=== PATIENT | female | born 1965 | race Caucasian/White ===

== ENCOUNTER 2016-07-07 11:35 | Emergency (ER) | payer BC ==
[2016-07-07 12:06] VITALS: BP 112/81
--- NOTE | 2016-07-07 13:34 | RAD ---
HISTORY: Pain and edema COMPARISONS: None VIEWS: 4, Frontal, lateral, axial, and oblique views of the right knee FINDINGS: BONE DENSITY: Normal. BONES: There is no displaced fracture. JOINTS: There is mild tricompartment osteoarthritis. There is a large suprapatellar joint effusion. ALIGNMENT: There is no dislocation. SOFT TISSUES: Unremarkable. OTHER FINDINGS: None. IMPRESSION: JOINT EFFUSION. NO ACUTE OSSEOUS INJURY. IF SYMPTOMS PERSIST, RECOMMEND REPEAT IMAGING.
--- NOTE | 2016-07-07 14:02 | UC ---
Knee Pain HPI - HPI Summary HPI Summary: WENT TO [facility] HAD HIP JOINT WORKED ON ON THURSDAY. SINCE THURSDAY EVENING HAD PAIN AND SWELLING AROUND KNEE CAP. NO KNOWN DIRECT TRAUMA. PAIN WITH MOVING KNEE CAP AND WITH BENDING KNEE. CURRENTLY ON BLOOD THINNERS FOR HISTORY OF FACTOR 5 LEIDEN. NO CALF PAIN. NO HIP PAIN. NO SHORTNESS OF BREATH OR CHEST PAIN. RIGHT KNEE DISLOCATION HISTORY IN ADOLESCENCE. - History of Current Complaint Chief Complaint: UCLowerExtremity Stated Complaint: KNEE PAIN Time Seen by Provider: 07/07/16 12:42 Hx Obtained From: Patient, Family/Cell Preparer Hx Last Menstrual Period: POST MENOPAUSAL Onset/Duration: Gradual Onset, Lasting Days, Still Present Severity Initially: Severe Severity Currently: Mild Character: Dull, Aching Aggravating Factor(s): Movement, Weight Bearing Alleviating Factor(s): Rest, Position Associated Signs And Symptoms: Positive: Swelling. Negative: Redness, Bruising , Fever, Weakness, Numbness, Tingling - Risk Factors Septic Arthritis Risk Factor: Negative Gout Risk Factor: Negative - Allergies/Home Medications Allergies/Adverse Reactions: Allergies Allergy/AdvReac Type Severity Reaction Status Date / Time No Known Allergies Allergy Verified 05/23/15 10:30 Home Medications: Home Medications Warfarin TAB(*) [Coumadin TAB(*)] 11 mg PO DAILY 07/07/16 [History Confirmed ] PMH/Surg Hx/FS Hx/Imm Hx Previously Healthy: Yes Endocrine History Of: Denies: Diabetes, Thyroid Disease, Hyperthyroidism, Hypothyroidism, Dyslipidemia Cardiovascular History Of: Denies: Cardiac Disorders, Hypertension, Pacemaker/ICD, Myocardial Infarction , Congestive Heart Failure, Atrial Fibrillation, Deep Vein Thrombosis, Bleeding Disorders Respiratory History Of: Denies: COPD, Asthma, Bronchitis, Pneumonia, Pulmonary Embolism GI/ History Of: Reports: Gastroesophageal Reflux Denies: Ulcer, Gastrointestinal Bleed, Gall Bladder Disease, Kidney Stones, Diverticulitis, Renal Disease, Urosepsis Neurological History Of: Reports: Migraine Denies: TIA, CVA, Dementia, Seizures Psychological History Of: Denies: Anxiety, Depression, Bipolar Disorder, Schizophrenia, Post Traumatic Stress Disorder Cancer History Of: Denies: Breast Cancer - Surgical History Surgical History: Yes Surgery Procedure, Year, and Place: tubal ligation. UMBILICAL HERNIA REPAIR - Family History Known Family History: Positive: None, Blood Disorder - FACTOR 5 LEIDEN - Social History Occupation: Employed Full-time Lives: With Family Alcohol Use: Occasionally Substance Use Type: None Smoking Status (MU): Never Smoked Tobacco Review of Systems Constitutional: Negative Skin: Negative Eyes: Negative ENT: Negative Respiratory: Negative Cardiovascular: Negative Gastrointestinal: Negative Genitourinary: Negative Motor: Negative Neurovascular: Negative Musculoskeletal: Arthralgia, Edema - ANTERIOR RIGHT KNEE, Other: - NEGATIVE HOMANS; NO POPLITEAL FOSSA TENDERNESS Neurological: Negative Psychological: Negative All Other Systems Reviewed And Are Negative: Yes Physical Exam Triage Information Reviewed: Yes Appearance: Well-Appearing, Well-Nourished, Pain Distress - MILD Vital Signs: Initial Vital Signs Temp 98.5 F 07/07/16 12:01 Pulse 80 07/07/16 12:01 Resp 16 07/07/16 12:01 BP 112/81 07/07/16 12:01 Pulse Ox 99 07/07/16 12:01 Vital Signs Reviewed: Yes Eye Exam: Normal ENT Exam: Normal ENT: Positive: Normal ENT inspection, Hearing grossly normal, Pharynx normal, TMs normal Dental Exam: Normal Neck exam: Normal Neck: Positive: Supple, Nontender, No Lymphadenopathy Respiratory Exam: Normal Respiratory: Positive: Chest non-tender, Lungs clear, Normal breath sounds, No respiratory distress, No accessory muscle use Cardiovascular Exam: Normal Cardiovascular: Positive: RRR, No Murmur, Pulses Normal, Brisk Capillary Refill Abdominal Exam: Normal Musculoskeletal: Positive: Strength Intact, ROM Limited @ - TENDERNESS WITH FLEXION OF RIGHT KNEE, Edema @ - ANTERIOR PATELLA, Other: - NEGATIVE HOMANS; NO POPLITEAL FOSSA TENDERNESS Neurological Exam: Normal Psychological Exam: Normal Psychological: Positive: Normal Response To Family Skin Exam: Normal Knee Pain Course/Dx - Course Course Of Treatment: PATIENT HAS ORTHOPEDICS APPOINTMENT TOMORROW. ON BLOOD THINNERS AND DECLINED IMMEDIATE EVALUATION AT EMERGENCY DEPARTMENT FOR POTENTIAL CLOTTING CONCERNS, AGREED TO SEEK IMMEDIATE EMERGENCY CARE IF CALF PAIN, POSTERIOR KNEE PAIN, IF SWELLING CONTINUES, IF SHORTNESS OF BREATH, CHEST DISCOMFORT OR ANY NEW SYMPTOMS DEVELOP OR IF CURRENT SYMPTOMS WORSEN. - Differential Dx/Diagnosis Differential Diagnosis/HQI/PQRI: Bursitis, DVT, Fracture (Closed), Internal Derangement Of Knee, Patellofemoral Syndrome, Sprain, Strain, Other - PAGE CYST Provider Diagnoses: RIGHT KNEE JOINT EFFUSION. RIGHT KNEE PAIN Discharge - Discharge Plan Condition: Stable Disposition: HOME Patient Education Materials: Swollen Knee Joint (ED), Knee Pain (ED) Referrals: Elisha Houston MD [Primary Care Provider] - Tye Warren MD [Medical Doctor] -
== END 2016-07-07 14:04 | disposition home or self-care (01) ==
LOC: UCEAST 11:35
DX: M25.461 Effusion, right knee (principal); M25.561 Pain in right knee; Z79.01 Long term (current) use of anticoagulants
CPT/HCPCS: 99212; G0463

== ENCOUNTER 2016-11-29 08:55 | Emergency (ER) | payer BC ==
--- NOTE | 2016-11-29 09:40 | UC ---
Cardiac HPI - HPI Summary HPI Summary: c/o rt sided sudden onset of rt sided chest pain that awoke her from sleep at 4AM. pain also in b/w her shoulder blades like someone is stabbing her with a knife". pain has been constant and escalating since then. now at 7/10. took a prevacid initially thinking it was gerd without relief. + h/o DVT in 190s with + factor V Leiden. She has been on warfarin for 1 yr She has been on lovenox since vascular surgery Rt LE in 11/08. she had vascular LE outpt procedure 11/24. She is very consistent with lovenox dosing (except last night's dose was 40mins late). INR yesterday was reportedly sub-theraputic at 1.0 with goal of 2.5. Took 9 mgs warfarin last PM. No leg swelling. pain 12/01. Of note, Dad had aneurysm but did not from this. Here with her S.O Max. - History of Current Complaint Chief Complaint: UCChestPain Stated Complaint: CHEST PAIN Time Seen by Provider: 11/29/16 09:05 - Allergy/Home Medications Allergies/Adverse Reactions: Allergies Allergy/AdvReac Type Severity Reaction Status Date / Time No Known Allergies Allergy Verified 11/29/16 09:09 Home Medications: Home Medications Enoxaparin(*) [Lovenox(*)] 60 mg BID 11/29/16 [History Confirmed 11/29/16] Folic Acid-Vitamin B6-Vitamin [Folbee 2.5-25-1 mg] 1 tab DAILY 11/29/16 [ History Confirmed 11/29/16] Warfarin TAB(*) [Coumadin TAB(*)] 10 mg PO DAILY 11/29/16 [History Confirmed 01/08] PMH/Surg Hx/FS Hx/Imm Hx Previously Healthy: Yes Cardiovascular History: Deep Vein Thrombosis - + Factor V Leiden def, Other - PVD Other Cardiovascular History: PVD GI/ History: Gastroesophageal Reflux Neurological History: Migraine - Surgical History Surgical History: Yes - PVD B/L LE Surgery Procedure, Year, and Place: tubal ligation. UMBILICAL HERNIA REPAIR - Family History Known Family History: Positive: Blood Disorder - FACTOR 5 LEIDEN, Other - aneursym - Social History Alcohol Use: Occasionally Substance Use Type: None Smoking Status (MU): Never Smoked Tobacco Review of Systems Constitutional: Negative Skin: Negative Eyes: Negative ENT: Negative Respiratory: Negative Cardiovascular: Chest Pain Gastrointestinal: Nausea Genitourinary: Negative Motor: Negative Neurovascular: Negative Musculoskeletal: Negative Neurological: Negative Psychological: Negative All Other Systems Reviewed And Are Negative: Yes Physical Exam Triage Information Reviewed: Yes Appearance: Well-Nourished, Ill-Appearing, Pain Distress, Other: - She is flexed forward on stretcher rocking holding a pillow up to her right chest. appears to be in mod-severe pain. Vital Signs Reviewed: Yes Eye Exam: Normal ENT Exam: Normal ENT: Positive: Pharynx normal Neck exam: Normal Neck: Positive: Supple, Nontender, No Lymphadenopathy Respiratory: Positive: Chest non-tender, Lungs clear, Normal breath sounds, No respiratory distress, No accessory muscle use. Negative: Crackles, Rhonchi, Stridor, Wheezing Cardiovascular Exam: Normal Cardiovascular: Positive: RRR, No Murmur, Pulses Normal, Brisk Capillary Refill Abdomen Description: Positive: Nontender, Soft Musculoskeletal Exam: Normal Neurological Exam: Normal Psychological Exam: Normal Skin Exam: Normal - Assessment/Plan Course Of Treatment: EKG - sinus julio, nml axis, no AV/IV changes or ST/T changes. IV HL paced. 911 ALS. they are agreeable to go to [facility] ER, Eugenio d/t urgency of possible aortic disection, PE. They are agreeable with this. - Differential Diagnoses - Chest Pain Differential Diagnosis/HQI/PQRI: Acute CT, ACS, Aortic Aneurysm, Pulmonary Embolism - Clinical Impression Provider Diagnoses: Right chest pain, thoracic back pain, factor V Leiden deficiency - Physician Notifications Discussed Patient Care With: RADHA Garnica ER Time Discussed With Above Provider: 09:30 Discharge - Discharge Plan Condition: Guarded Disposition: TRANS HIGHER LVL OF CARE FAC
[2016-11-29 09:59] VITALS: BP 125/73
== END 2016-11-29 09:40 | disposition short-term general hospital (02) ==
LOC: UCCORT 08:55
DX: R07.9 Chest pain, unspecified (principal); M54.6 Pain in thoracic spine; D68.51 Activated protein C resistance; Z79.01 Long term (current) use of anticoagulants
CPT/HCPCS: 93005; 99213; G0463

== ENCOUNTER 2019-09-06 13:09 | Emergency (ER) | payer BC ==
--- NOTE | 2019-09-06 13:14 | UC ---
Skin Complaint HPI - HPI Summary HPI Summary: 54-year-old female who presents with an itchy rash on her arms, abdomen and back. She stated she was outdoors on Thursday, 2 days ago for an Easter egg boudreaux and that evening she started having a red rash on her elbows which was fairly itchy. Since then it has continued to spread. She had a similar episode a few years ago where she was working with mulch in the yard. She denies any difficulty breathing, no wheezing. No other change of laundry detergent or cosmetics. - History of Current Complaint Time Seen by Provider: 09/06/19 13:13 Stated Complaint: rash Hx Obtained From: Patient Hx Last Menstrual Period: POST MENOPAUSAL ?: No Onset/Duration: Gradual Onset, Lasting Days Skin Exposure Onset/Duration: Days Ago Timing: Constant Onset Severity: Mild Current Severity: Moderate Location: Diffuse, Other - Mostly on both forearms, lower back and abdomen. Character: Pruritus, Hives - The areas on her lower back appear hive-like. Aggravating Factor(s): Nothing Alleviating Factor(s): Nothing - The patient did take Benadryl 50 mg prior to arrival. Associated Signs & Symptoms: Positive: Rash Related History: Possible Reaction to: Environmental Exposure - Allergy/Home Medications Allergies/Adverse Reactions: Allergies Allergy/AdvReac Type Severity Reaction Status Date / Time Iodinated Contrast Media Allergy Hives Verified 09/06/19 13:13 Home Medications: Home Medications Zolmitriptan [Zomig Zmt] 1 tab PO DAILY PRN 05/26/13 [History Confirmed 05/23/15 ] Warfarin TAB(*) [Coumadin TAB(*)] 8 mg PO DAILY 07/07/16 [History Confirmed ] Cyanocobalamin/Folic AC/Vit B6 [Folbee Tablet] 1 tab PO DAILY 11/29/16 [History Confirmed 11/29/16] Enoxaparin(*) [Lovenox(*)] 60 mg SUBCUT BID PRN 11/29/16 [History Confirmed 01/08] Warfarin TAB(*) [Coumadin TAB(*)] 10 mg PO DAILY 11/29/16 [History Confirmed 01/08] Diphenhydramine HCl/Zinc Acet [Benadryl Extra Strength 2-0.1 % CREAM] 1 cre EX DAILY PRN 09/06/19 [History Confirmed 09/06/19] Hydrocortisone 1% CREAM(NF) [Hytone Cream 1%*] 1 applic TOPICAL DAILY PRN [History Confirmed 09/06/19] diphenhydrAMINE HCl [Benadryl Allergy 25 MG CAP] 50 mg PO ONCE PRN 09/06/19 [ History Confirmed 09/06/19] hydrOXYzine HCL TAB* [Atarax 25 MG TAB*] 25 mg PO QID PRN 09/06/19 [History Confirmed 09/06/19] predniSONE 10 mg TAB [Deltasone 10 MG TAB*] 10 mg PO DAILY 12 Days #30 tab 09/05 [Rx] PMH/Surg Hx/FS Hx/Imm Hx Previously Healthy: Yes - Surgical History Surgical History: Yes Surgery Procedure, Year, and Place: tubal ligation. UMBILICAL HERNIA REPAIR. GALLBLADDER - Family History Known Family History: Positive: None, Blood Disorder - FACTOR 5 LEIDEN, Other - aneursym - Social History Occupation: Employed Full-time Lives: With Family - Because of Covid 19 pandemic patient is presently home and not working outside the home. Alcohol Use: Occasionally Substance Use Type: None Smoking Status (MU): Never Smoked Tobacco Review of Systems All Other Systems Reviewed And Are Negative: Yes Skin: Positive: Rash - Itchy rash mostly on both forearms, lower back, across abdomen. Is Patient Immunocompromised?: No Physical Exam Triage Information Reviewed: Yes Appearance: Well-Appearing, No Pain Distress Vital Signs Reviewed: Yes Respiratory: Positive: Lungs clear, Normal breath sounds, No respiratory distress, No accessory muscle use Cardiovascular: Positive: RRR, No Murmur, Pulses Normal, Brisk Capillary Refill Musculoskeletal Exam: Normal Neurological Exam: Normal Psychological Exam: Normal Skin: Positive: Rashes - The rash areas on the patient's back appear hive-like. There is some small areas on her forearms that appear hive-like and red areas that are approximately 2 or 3 mm in diameter that are itchy. Course/Dx - Course Course Of Treatment: The patient can continue her Benadryl as directed. She was advised to stop any topical hydrocortisone cream. Going to start her on prednisone taper. She gets her INR tested every week because of her Factor V Leiden. I advised her the prednisone can affect that and she should definitely mention that to her primary care provider when she gets the results of her INR this coming Thursday. She will also be tested again next week. - Diagnoses Provider Diagnosis: Allergic reaction Discharge ED - Sign-Out/Discharge Documenting (check all that apply): Patient Departure All imaging exams completed and their final reports reviewed: No Studies - Discharge Plan Condition: Good Disposition: HOME Prescriptions: predniSONE 10 mg TAB [Deltasone 10 MG TAB*] 10 mg PO DAILY 12 Days #30 tab Patient Education Materials: Urticaria (ED) Referrals: Talia Kelly MD [Primary Care Provider] - Additional Instructions: Avoid scratching as much as possible. You may continue taking the Benadryl 25- 50 mg every 6 hours as needed. In the evening if you want to take your hydroxyzine then do not take Benadryl. The prednisone with food. Your appointment for the INR this Thursday and again Thursday. Go to the emergency room if you have any difficulty breathing, facial swelling or feeling like your throat is going to close, or shortness of breath. Follow-up with your primary care provider in 3 or 4 days if no improvement. - Billing Disposition and Condition Condition: GOOD Disposition: Home
[2019-09-06 13:23] VITALS: BP 117/86
--- OUTSIDE RECORDS SUMMARY | 2019-09-06 13:35 | XMS REPORT | Continuity of Care Document ---
:1965 External Reference #:[id number] Author Name Oncology Nurse (transmitted by agent of provider Connie Jesus) Address [address] [place] [address] [address] [place] [address] Care Team Providers Name Role Phone Angely Self DO - Hematology & Care Team Information Junior Legal Secretary Oncology Sammy Gonzalez MD - Surgery Care Team Information Junior Legal Secretary Lakisha Herrera MD - Family Care Team Information Junior Legal Secretary [phone] Medicine Talia Kelly MD - Internal Care Team Information Junior Legal Secretary [phone] Medicine Problems Active Problems Provider Date Thrombophlebitis of superficial veins of Angely Self DO Onset: 2015 lower extremity Hypercoagulability state Angely Self DO Onset: 12/04/2015 Lymphadenopathy Angely Self DO Onset: 12/04/2015 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 Oncology Nurse Onset: 09/10/2017 Venous varices Oncology Nurse Onset: 09/10/2017 Vitamin D deficiency Angely Self DO Onset: 07/06/2018 Vitamin B deficiency Angely Self DO Onset: 07/06/2018 Iron deficiency Angely Self DO Onset: 07/06/2018 Hyperlipidemia Elisha Houston MD Onset: 07/28/2018 Aneurysm of thoracic aorta Elisha Houston MD Onset: 07/28/2018 Lichen sclerosus et atrophicus Elisha Houston MD Onset: 07/28/2018 Long-term current use of anticoagulant Barrie Reyna, Onset: 08/05/2019 Wilma, [facility] Palpitations Barrie Reyna, Onset: 08/05/2019 Wilma, [facility] Social History Type Date Description Comments Sex Unknown Tobacco Use Start: Unknown Never Smoked Cigarettes Smoking Status Reviewed: 08/05/19 Never Smoked Cigarettes ETOH Use Currently consumes alcohol socially Tobacco Use Start: Unknown Patient has never smoked Recreational Drug Use Denies Drug Use Allergies, Adverse Reactions, Alerts Active Allergies Reaction Severity Comments Date NKDA 06/19/2015 Cas[place]ws 11/23/2015 Contrast Dye Hives, Itching Mild needs premedication for testing 05/09/2019 with dye Medications Active Medications SIG Qnty Indications Ordering Date Provider Hydroxyzine HCL 1-2 tabs by mouth 60tabs G47.00 Ratnasingam, 03/04/2018 25mg at night as needed MD Talia Tablets for anxiety and insomnia Coumadin 2 tabl by mouth 60tabs Boufal, 06/29/2017 5mg Tablets every day as Angely, DO directed Folbee 1 tabl by mouth 30tabs Boufal, 01/02/2016 2.5-25-1mg every day Angely, DO Tablets Coumadin 9 tabl by mouth 150tabs Boufal, 12/29/2015 1mg Tablets every other day Angely, DO alterating with 10 as directed Fluticasone Use 2 Sprays 16units Elisha Houston, 09/05/2015 Propionate Intranasal Once 50mcg/Act Daily Suspension Zomig 1 by mouth at 6tabs Ratnasingam, 06/19/2015 2.5mg Tablets onset of carrizales, may MD Talia repeat x 1 after an hour if not affective Vitamin D3 1 by mouth every Unknown 2000Unit day Capsules Immunizations Description No Information Available Vital Signs Date Vital Result Comment 08/05/2019 8:42am BP Systolic Sitting Left Arm 135 mmHg BP Diastolic Sitting Left Arm 92 mmHg Heart Rate 81 /min Respiratory Rate 18 /min Height 70 inches 5'10" Weight 216.00 lb BMI (Body Mass Index) 31.0 kg/m2 BSA (Body Surface Area) 2.16 m2 [place] body weight in kilograms 68 kg O2 % BldC Oximetry 95 % ra Ejection Fraction 50-55% 07/19/2019 2:05pm BP Systolic 119 mmHg BP Diastolic 78 mmHg Body Temperature 98.2 F Heart Rate 74 /min Respiratory Rate 16 /min Weight 213.38 lb O2 % BldC Oximetry 97 % Results Test Acquired Date Facility Test Result H/L Range Note Protime 08/05/2019 [facility] Protime 30.2 seconds High 12.0-14.4 1 [address] [place] [address] [phone] Inr 2.9 High 0.9-1.1 2 Inr PPP 07/14/2019 N2N/CCD Import Inr International 3.1 High 0.9-1.1 Normalized Ratio Glucose 07/14/2019 N2N/CCD Import Glucose Screen 102 74-106 SerPl-mCnc BUN SerPl-mCnc 07/14/2019 N2N/CCD Import Blood Urea Nitrogen 18 7-18 Creat SerPl-mCnc 07/14/2019 N2N/CCD Import Creatinine 1.3 0.6-1.3 GFR/Bsa pred.non 07/14/2019 N2N/CCD Import Estimated GFR 45 >60 black SerPl (Non- MDRD-ArVRat Cambodian GFR/Bsa 07/14/2019 N2N/CCD Import Estimated GFR 54 >60 pred.black SerPl () MDRD-ArVRat BUN/Creat SerPl 07/14/2019 N2N/CCD Import BUN/Creatinine Ratio 13.8 Sodium 07/14/2019 N2N/CCD Import Sodium Level 141 136-145 SerPl-sCnc Potassium 07/14/2019 N2N/CCD Import Potassium Level 3.7 3.5-5.1 SerPl-sCnc Chloride 07/14/2019 N2N/CCD Import Chloride Level 109 High 98-107 SerPl-sCnc Co2 SerPl-sCnc 07/14/2019 N2N/CCD Import Carbon Dioxide Level 27 21-32 Anion Gap 07/14/2019 N2N/CCD Import Anion Gap 5 Low 8-16 SerPl-sCnc Calcium 07/14/2019 N2N/CCD Import Calcium Level 9.0 8.5-10.1 SerPl-mCnc Prot SerPl-mCnc 07/14/2019 N2N/CCD Import Total Protein 7.6 6.4-8.2 Albumin 07/14/2019 N2N/CCD Import Albumin 3.7 3.4-5.0 SerPl-mCnc Globulin Ser 07/14/2019 N2N/CCD Import Globulin 3.9 1.9-4.3 Calc-mCnc Albumin/Glob 07/14/2019 N2N/CCD Import Albumin/Globulin 0.9 SerPl Ratio Bilirub 07/14/2019 N2N/CCD Import Total Bilirubin 1.1 High 0.2-1.0 SerPl-mCnc Ast SerPl-cCnc 07/14/2019 N2N/CCD Import Aspartate Amino 23 15-37 Transf (Ast/Sgot) Alt SerPl-cCnc 07/14/2019 N2N/CCD Import Alanine 41 12-78 Aminotransferase (Alt/SGPT) Alp SerPl-cCnc 07/14/2019 N2N/CCD Import Alkaline Phosphatase 77 45-117 Troponin I 07/14/2019 N2N/CCD Import Troponin I < 0.015 SerPl-mCnc WBC # XXX Auto 07/14/2019 N2N/CCD Import White Blood Count 5.1 3.1-10.7 RBC # Bld Auto 07/14/2019 N2N/CCD Import Red Blood Count 4.23 3.90-5.40 Hgb Bld-mCnc 07/14/2019 N2N/CCD Import Hemoglobin 13.5 11.6-15.8 Hct VFr Bld Auto 07/14/2019 N2N/CCD Import Hematocrit 39.5 36.0-46.1 MCV RBC Auto 07/14/2019 N2N/CCD Import Mean Corpuscular 93.4 80.9-99.0 Volume MCH RBC Qn Auto 07/14/2019 N2N/CCD Import Mean Corpuscular 31.9 25.9- 32.7 Hemoglobin MCHC RBC 07/14/2019 N2N/CCD Import Mean Corpuscular 34.2 30.8-34.3 Auto-mCnc Hemoglobin Concent Platelet # Bld 07/14/2019 N2N/CCD Import Platelet Count 246 155-360 Auto RDW RBC Auto 07/14/2019 N2N/CCD Import Red Cell 42.4 36-47 Distribution Width RDW RBC Auto-Rto 07/14/2019 N2N/CCD Import RDW Coefficient of 12.5 11.7- 14.4 Variation PMV Bld Auto 07/14/2019 N2N/CCD Import Mean Platelet Volume 10.5 8.9- 12.4 Neutrophils/leuk 07/14/2019 N2N/CCD Import Neutrophils (%) 52.7 40.4- 72.8 NFr Bld Auto (Auto) Lymphocytes/leuk 07/14/2019 N2N/CCD Import Lymphocytes (%) 35.0 20.0- 42.0 NFr Bld Auto (Auto) Prothrombin time 07/14/2019 N2N/CCD Import Prothrombin Time 32.9 High 12.0-14.4 nRBC # Bld Auto 07/14/2019 N2N/CCD Import Nucleated RBC 0.00 Absolute Count (auto) Imm Granulocytes 07/14/2019 N2N/CCD Import Immature Granulocyte 0.02 # Bld Auto # (Auto) Basophils # Bld 07/14/2019 N2N/CCD Import Basophils # (Auto) 0.05 0.0- 0.1 Auto Eosinophil # Bld 07/14/2019 N2N/CCD Import Eosinophils # (Auto) 0.15 0.0 -0.5 Auto Monocytes # Bld 07/14/2019 N2N/CCD Import Monocytes # (Auto) 0.41 0.3- 0.9 Auto Monocytes/leuk 07/14/2019 N2N/CCD Import Monocytes (%) (Auto) 8.0 4.3- 13.2 NFr Bld Auto Eosinophil/leuk 07/14/2019 N2N/CCD Import Eosinophils (%) 2.9 0.0-6.6 NFr Bld Auto (Auto) Basophils/leuk 07/14/2019 N2N/CCD Import Basophils (%) (Auto) 1.0 0.0- 1.1 NFr Bld Auto Lymphocytes # 07/14/2019 N2N/CCD Import Lymphocytes # (Auto) 1.80 1.0- 4.0 Bld Auto Neutrophils # 07/14/2019 N2N/CCD Import Neutrophils # (Auto) 2.71 1.8- 7.0 Bld Auto nRBC/100 WBC Bld 07/14/2019 N2N/CCD Import Nucleated Red Blood 0.0 < 10 / 100 Auto-Rto Cells % (auto) WBC Imm 07/14/2019 N2N/CCD Import Immature Granulocyte 0.4 0.0-5.0 Granulocytes/faith % (Auto) k NFr Bld Auto Protime 06/27/2019 [facility] Protime 30.4 High 12.0-14.[address] [place] [address] [phone] Inr 2.8 High 0.9-1.1 3 CBC W/Automated 06/27/2019 [facility] White Blood 4.7 K/uL Normal 3.1-10.[address] [place] [address] [phone] Red Blood Count 4.43 M/uL Normal 3.90-5.40 Hemoglobin 13.8 gm/dL Normal 11.6-15.8 Hematocrit 42.2 % Normal 36.0-46.1 Mean Cell Volume 95.3 fl Normal 80.9-99.0 Mean Corpuscular HGB 31.2 pg Normal 25.9-32.7 Mean Corpuscular HGB Conc 32.7 g/dL Normal 30.8-34.3 Platelet Count 250 K/uL Normal 155-360 Red Cell Distri Width SD 42.8 fl Normal 36-47 Red Cell Distri Width %CV 12.2 % Normal 11.7-14.4 Mean Platelet Volume 10.4 fl Normal 8.9-12.4 Neut% 54.6 % Normal 40.4-72.8 Lymph % 31.6 % Normal 20.0-42.0 [place] % 9.1 % Normal 4.3-13.2 Eo% 3.0 % Normal 0.0-6.6 Bas% 1.3 % High 0.0-1.1 Immature Grans 0.4 % Normal 0.0-5.0 NRBC % 0.0 /100WBC < 10/ 100 WBC Neut# 2.57 K/uL Normal 1.8-7.0 Lymph # 1.49 K/uL Normal 1.0-4.0 [place] # 0.43 K/uL Normal 0.3-0.9 Eos # 0.14 K/uL Normal 0.0-0.5 Baso # 0.06 K/uL Normal 0.0-0.1 Immature Grans Absolute 0.02 K/uL NRBC # 0.00 K/uL Folate SerPl-mCnc 06/27/2019 N2N/CCD Import Folate > 20.0 High 3.1-17.5 Vit B12 [facility] 06/27/2019 N2N/CCD Import Vitamin B12 > 2000 High 193- 986 Level Iron [facility] 06/27/2019 N2N/CCD Import Iron Level 81 50-170 Comprehensive 06/27/2019 [facility] Glucose 89 mg/dL Normal 74-106 Metabolic Panel [address] [place], [place] [id number] [phone] BUN 17 mg/dL Normal 7-18 Creatinine 0.9 mg/dL Normal 0.6-1.3 Glom Filtration Rate, Estimate >60 mL/min >60 If >60 mL/min >60 4 BUN/Creat 18.8 ratio Sodium 140 mmol/L Normal 136-145 Potassium 4.0 mmol/L Normal 3.5-5.1 Chloride 110 mmol/L High 98-107 Carbon Dioxide 24 mmol/L Normal 21-32 Anion Gap 6 mEq/L Low 8-16 Calcium 9.2 mg/dL Normal 8.5-10.1 Total Protein 8.0 g/dL Normal 6.4-8.2 Albumin 3.8 g/dL Normal 3.4-5.0 Globulin 4.2 g/dL Normal 1.9-4.3 Alb/Glob 0.9 ratio Bilirubin,Total 1.3 mg/dL High 0.2-1.0 Sgot/Ast 21 U/L Normal 15-37 SGPT/Alt 37 U/L Normal 12-78 Alkaline Phosphatase 76 U/L Normal 45-117 Iron-Tibc-%Sat 06/27/2019 [facility] Serum Iron 81 g/dL Normal 50-170 [address] [place] [address] [phone] Total Iron Binding Capacity 325 g/dL Normal 250-450 Transferrin %Saturation 25 % Normal 12-57 Laboratory test 06/27/2019 [facility] Ferritin 87 ng/mL Normal 8-252 finding [address] [place] [address] [phone] Vitamin B12 And 06/27/2019 [facility] Vitamin B12 > 2000 High 193-986 Folate [address] [facility] pg/mL [place], [place] [id number] [phone] Folic Acid > 20.0 ng/mL High 3.1-17.5 Laboratory 06/27/2019 [facility] Vitamin 25.0 ng/mL Low 30.0-100.0 5 test finding [address] D,25[place] [address] [phone] Protime 06/09/2019 [facility] Protime 28.7 High 12.0-14.[address] [place] [address] [phone] Inr 2.6 High 0.9-1.1 7 Anticoagulant Therapy? Unknown Protime 06/03/2019 [facility] Protime 23.7 seconds High 12.0-14.4 8 [address] [place] [address] [phone] Inr 2.1 High 0.9-1.1 9 Anticoagulant Therapy? Unknown Protime 05/27/2019 [facility] Protime 35.3 seconds High 12.0-14.4 [address] [place] [address] [phone] Inr 3.4 High 0.9-1.1 10 Anticoagulant Therapy? Unknown Protime 05/13/2019 [facility] Protime 28.7 seconds High 12.0-14.4 [address] [place] [address] [phone] Inr 2.6 High 0.9-1.1 11 Anticoagulant Therapy? YES Date of Last Dose: U Time of Last Dose: U Protime 04/25/2019 [facility] Protime 31.9 seconds High 12.0-14.4 [address] [place] [address] [phone] Inr 3.0 High 0.9-1.1 12 Protime 04/11/2019 [facility] Protime 33.7 seconds High 12.0-14.4 13 [address] [place] [address] [phone] Inr 3.2 High 0.9-1.1 14 Liver Function 04/04/2019 [facility] Total Protein 7.2 g/dL Normal 6.4-8.2 15 Tests [address] [place] [address] [phone] Albumin 3.7 g/dL Normal 3.4-5.0 Globulin 3.5 g/dL Normal 1.9-4.3 Alb/Glob 1.1 ratio Bilirubin,Total 1.1 mg/dL High 0.2-1.0 Bilirubin,Direct 0.2 mg/dL Normal 0.0-0.2 Bilirubin,Indirect 0.9 mg/dL Normal 0.0-0.9 Sgot/Ast 12 U/L Low 15-37 16 SGPT/Alt 29 U/L Normal 12-78 Alkaline Phosphatase 78 U/L Normal 45-117 Bilirub Direct 04/04/2019 N2N/CCD Import Direct 0.2 0.0-0.2 SerPl-mCnc Bilirubin Bilirub Indirect 04/04/2019 N2N/CCD Import Indirect 0.9 0.0-0.9 SerPl-mCnc Bilirubin Protime 03/18/2019 [facility] Protime 26.6 seconds High 12.0-14.4 17 [address] [place] [address] [phone] Inr 2.4 High 0.9-1.1 18 Anticoagulant Therapy? Unknown Protime 03/04/2019 [facility] Protime 32.1 seconds High 12.0-14.4 [address] [place] [address] [phone] Inr 3.0 High 0.9-1.1 19 Anticoagulant Therapy? YES Date of Last Dose: U Time of Last Dose: U 1 Z79.01 D68.2 2 THERAPEUTIC INR RANGE: 2.0 - 3.0 DVT, Pulmonary embolus, prophylaxis against venous thrombosis or systemic embolization in high risk patients. 2.5 - 3.5 Mechanical heart valves 3 THERAPEUTIC INR RANGE: 2.0 - 3.0 DVT, Pulmonary embolus, prophylaxis against venous thrombosis or systemic embolization in high risk patients. 2.5 - 3.5 Mechanical heart valves 4 Note: Persistent reduction for 3 months or more in an eGFR <60 mL/min/1.73 m2 defines CKD. Patients with eGFR values >/=60 mL/min/1.73 m2 may also have CKD if evidence of persistent proteinuria is present. The original MDRD equation for estimated GFR is not valid for patients less than 18 years of age. Additional information may be found at www.kdoqi.org. 5 Vitamin D deficiency has been defined by the [place] [employer] and an Endocrine Society practice guideline as a level of serum 25-OH vitamin D less than 20 ng/mL (1,2). The Endocrine Society went on to further define vitamin D insufficiency as a level between 21 and 29 ng/mL (2). 1. IOM ([place] [employer]). 2010. Dietary reference intakes for calcium and D. [place]: The National Academies Press. 2. Augusto MF, Kisha HADDAD, Darby CARRIZALES, et al. Evaluation, treatment, and prevention of vitamin D deficiency: an Endocrine Society clinical practice guideline. JCEM. 2010; 96():1911-30. Performed at: RN - [facility] [address] [id number] Diabetes Trainer: Ember Capone MD, Phone: [phone] I80.02 D68.2 7 THERAPEUTIC INR RANGE: 2.0 - 3.0 DVT, Pulmonary embolus, prophylaxis against venous thrombosis or systemic embolization in high risk patients. 2.5 - 3.5 Mechanical heart valves 8 D68.2 I80.02 9 THERAPEUTIC INR RANGE: 2.0 - 3.0 DVT, Pulmonary embolus, prophylaxis against venous thrombosis or systemic embolization in high risk patients. 2.5 - 3.5 Mechanical heart valves 10 THERAPEUTIC INR RANGE: 2.0 - 3.0 DVT, Pulmonary embolus, prophylaxis against venous thrombosis or systemic embolization in high risk patients. 2.5 - 3.5 Mechanical heart valves 11 THERAPEUTIC INR RANGE: 2.0 - 3.0 DVT, Pulmonary embolus, prophylaxis against venous thrombosis or systemic embolization in high risk patients. 2.5 - 3.5 Mechanical heart valves 12 THERAPEUTIC INR RANGE: 2.0 - 3.0 DVT, Pulmonary embolus, prophylaxis against venous thrombosis or systemic embolization in high risk patients. 2.5 - 3.5 Mechanical heart valves 13 I71.2 Z79.01 14 THERAPEUTIC INR RANGE: 2.0 - 3.0 DVT, Pulmonary embolus, prophylaxis against venous thrombosis or systemic embolization in high risk patients. 2.5 - 3.5 Mechanical heart valves 15 R94.5 16 Values below the stated reference ranges of AST and ALT can be seen in normal populations. Clinical correlation is suggested. 17 D68.2 I80.02 18 THERAPEUTIC INR RANGE: 2.0 - 3.0 DVT, Pulmonary embolus, prophylaxis against venous thrombosis or systemic embolization in high risk patients. 2.5 - 3.5 Mechanical heart valves 19 THERAPEUTIC INR RANGE: 2.0 - 3.0 DVT, Pulmonary embolus, prophylaxis against venous thrombosis or systemic embolization in high risk patients. 2.5 - 3.5 Mechanical heart valves Procedures Date Code Description Status 08/05/2019 27312 EKG-Tracing And Report Completed 05/09/2019 [id number] Mammogram Completed 05/03/2018 [id number] Mammogram Completed 05/01/2017 [id number] Mammogram Completed 04/27/2016 [id number] Mammogram Completed 04/09/2015 [id number] Mammogram Completed 04/25/2014 [id number] Colonoscopy Completed Medical Devices Description No Information Available Encounters Type Date Location Provider Dx Diagnosis Office Visit 08/05/2019 Cardiology Office Barrie Reyna R00.2 Palpitations 9:00a Wilma Goodwin, [facility] I71.2 Thoracic aortic aneurysm, without rupture Z79.01 watermaster (current) use of anticoagulants I71.2 Thoracic aortic aneurysm, without rupture R00.2 Palpitations Z79.01 [facility] (current) use of anticoagulants Office Visit 07/19/2019 2:00p Oncology Office Galilea Benavidez 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., PERSONAL CONSULTANT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 Z79.01 [facility] (current) use of anticoagulants Office Visit 05/16/2019 8:10a Primary Care Ana Kelly.60Adryan Pain in left Office MD Talia arm Office Visit 04/06/2019 1:40p Primary Care Casper Kelly71.2 Thoracic Office MD Talia aortic aneurysm, without rupture Z12.31 Encntr screen mammogram for malignant neoplasm of breast Assessments Date Code Description Provider 08/05/2019 R00.2 Palpitations Barrie Reyna M.D., FAC 08/05/2019 Z79.01 watermaster (current) use of Angely Self DO anticoagulants 08/05/2019 I71.2 Thoracic aortic aneurysm, without Barrie Reyna M.D. 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 , rupture [facility] 08/05/2019 R00.2 Palpitations Barrie Reyna M.D., [facility] 08/05/2019 Z79.01 [facility] (current) use of Barrie Reyna M.D., anticoagulants [facility] 07/19/2019 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 [place], Galilea B., PERSONAL CONSULTANT clotting factors 07/19/2019 Z79.01 [facility] (current) use of ReemaGalilea B., PERSONAL CONSULTANT anticoagulants 06/27/2019 Z79.01 [facility] (current) use of Boufal, Angely, DO anticoagulants 06/27/2019 Z79.01 [facility] (current) use of Oncology Nurse anticoagulants 06/27/2019 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, Angely, 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 06/27/2019 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 06/09/2019 I80.02 Phlebitis and thrombophlebitis of Boufal, Angely, DO superficial vessels of left lower extremity 06/09/2019 I80.02 Phlebitis and thrombophlebitis of Oncology Nurse superficial vessels of left lower extremity 06/09/2019 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, Angely, 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 06/09/2019 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 06/03/2019 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, Angely, 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 06/03/2019 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 06/03/2019 I80.02 Phlebitis and thrombophlebitis of Boufal, Angely, DO superficial vessels of left lower extremity 06/03/2019 I80.02 Phlebitis and thrombophlebitis of Oncology Nurse superficial vessels of left lower extremity 05/27/2019 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, Angely, 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 05/27/2019 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 05/27/2019 I80.02 Phlebitis and thrombophlebitis of Boufal, Angely, DO superficial vessels of left lower extremity 05/27/2019 I80.02 Phlebitis and thrombophlebitis of Oncology Nurse superficial vessels of left lower extremity 05/16/2019 M79.602 Pain in left arm Talia Kelly MD 05/13/2019 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, Angely, 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 05/13/2019 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 05/13/2019 I80.02 Phlebitis and thrombophlebitis of Boufal, Angely, DO superficial vessels of left lower extremity 05/13/2019 I80.02 Phlebitis and thrombophlebitis of Oncology Nurse superficial vessels of left lower extremity 04/25/2019 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, Angely, 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 04/25/2019 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 04/25/2019 I80.02 Phlebitis and thrombophlebitis of Boufal, Angely, DO superficial vessels of left lower extremity 04/25/2019 I80.02 Phlebitis and thrombophlebitis of Oncology Nurse superficial vessels of left lower extremity 04/11/2019 I71.2 Thoracic aortic aneurysm, without Boufal, Angely, DO rupture 04/11/2019 I71.2 Thoracic aortic aneurysm, without Oncology Nurse rupture 04/11/2019 Z79.01 watermaster (current) use of BoDevyn fryt, DO anticoagulants 04/11/2019 Z79.01 [facility] (current) use of Oncology Nurse anticoagulants 04/06/2019 I71.2 Thoracic aortic aneurysm, without Talia Kelly MD rupture 04/06/2019 Z12.31 Encounter for screening mammogram for Talia Kelly MD malignant neoplasm of breast 03/18/2019 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, Angely, 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 03/18/2019 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 03/18/2019 I80.02 Phlebitis and thrombophlebitis of BoufalLuzAngely, DO superficial vessels of left lower extremity 03/18/2019 I80.02 Phlebitis and thrombophlebitis of Oncology Nurse superficial vessels of left lower extremity 03/04/2019 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 Angely Self, 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 03/04/2019 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 03/04/2019 I80.02 Phlebitis and thrombophlebitis of Angely Self, DO superficial vessels of left lower extremity 03/04/2019 I80.02 Phlebitis and thrombophlebitis of Oncology Nurse superficial vessels of left lower extremity Plan of Treatment Future Appointment(s):02/20/2020 9:40 am - Barrie Reyna M.D., FAC at Cardiology [id number]/22/2019 2:30 pm - Galilea eBnavidez NP at Oncology [id number]/05/2019 2:20 pm - Talia Kelly MD at Primary Care [id number] - Barrie Reyna M.D., FACCR00.2 PalpitationsComments:I reassured her.I71.2 Thoracic aortic aneurysm, without ruptureNew Xrays:CT, Chest W Out Contrast, Ordered: 08/05/19New Orders:Echocardiogram, Ordered: 08/05/19Comments: Borderline dilation of the ascending aorta. Will follow up with CT of the chest and echo in 6 otbdtwX05.01 [facility] (current) use of anticoagulantsComments:On coumadin followed by PCPI71.2 Thoracic aortic aneurysm, without ruptureNew Xrays :CT, Chest W Out Contrast, Ordered: 08/05/19New Orders:Echocardiogram, Ordered: 08/05/19Comments:Borderline dilation of the ascending aorta. Will follow up with CT of the chest and echo in 6 goucmaE73.2 PalpitationsComments:I reassured her.Z79.01 [facility] (current) use of anticoagulantsComments:On coumadin followed by PCPAllFollow up:Follow up visit in 6 months. Functional Status Functional Condition Comment Date Status Independent with all ADL's Active Glasses Active Mental Status Description No Information Available Referrals Description No Information Available
--- OUTSIDE RECORDS SUMMARY | 2019-09-06 13:35 | XMS REPORT | Continuity of Care Document ---
:1965 External Reference #:[id number] Author Name Barrie Reyna M.D., [facility] (transmitted by agent of provider Sandie Mcgregor) Address [address] [place] [address] Care Team Providers Name Role Phone Angely Self DO - Hematology & Care Team Information Distributing Clerk Oncology Sammy Gonzalez MD - Surgery Care Team Information Distributing Clerk [phone] Lakisha Herrera MD - Family Care Team Information Distributing Clerk [phone] Medicine Talia Kelly MD - Internal Care Team Information Distributing Clerk Medicine Problems Active Problems Provider Date Thrombophlebitis [...] of anticoagulant Barrie Reyna, Onset: 08/05/2019 Wilma, [facility] Palpitations Barrie eRyna, Onset: 08/05/2019 Wilma, [facility] Social History Type Date Description Comments Sex [...] kg/m2 BSA (Body Surface Area) 2.16 m2 [place] body weight in kilograms 68 kg O2 [...] 30.2 seconds High 12.0-14.4 1 [address] [place], [place] [id number] [phone] Inr 2.9 High 0.9-1.1 2 Inr PPP 07/14/2019 N2N/CCD Import Inr International 3.1 High 0.9-1.1 Normalized Ratio Glucose 07/14/2019 N2N/CCD Import Glucose Screen 102 74-106 SerPl-mCnc BUN SerPl-mCnc 07/14/2019 N2N/CCD Import Blood Urea Nitrogen 18 7-18 Creat SerPl-mCnc 07/14/2019 N2N/CCD Import Creatinine 1.3 0.6-1.3 GFR/Bsa pred.non 07/14/2019 N2N/CCD Import Estimated GFR 45 >60 black SerPl (Non- MDRD-ArVRat Peruvian GFR/Bsa 07/14/2019 N2N/CCD Import Estimated GFR 54 [...] (Auto) k NFr Bld Auto Protime 06/27/2019 [facility] Protime 30.4 High 12.0-14.[address] [place] [address] [phone] Inr 2.8 High 0.9-1.1 3 CBC W/Automated 06/27/2019 [facility] White Blood 4.7 K/uL Normal 3.1-10.[address] [place] [address] [phone] Red Blood Count 4.43 M/uL Normal 3.90-5.40 [...] 40.4-72.8 Lymph % 31.6 % Normal 20.0-42.0 [place] % 9.1 % Normal 4.3-13.2 Eo% 3.0 % Normal 0.0-6.6 Bas% 1.3 % High 0.0-1.1 Immature Grans 0.4 % Normal 0.0-5.0 NRBC % 0.0 /100WBC < 10/ 100 WBC Neut# 2.57 K/uL Normal 1.8-7.0 Lymph # 1.49 K/uL Normal 1.0-4.0 [place] # 0.43 K/uL Normal 0.3-0.9 Eos # 0.14 K/uL Normal 0.0-0.5 Baso # 0.06 K/uL Normal 0.0-0.1 Immature Grans Absolute 0.02 K/uL NRBC # 0.00 K/uL Folate SerPl-mCnc 06/27/2019 N2N/CCD Import Folate > 20.0 High 3.1-17.5 Vit B12 [facility] 06/27/2019 N2N/CCD Import Vitamin B12 > 2000 High 193- 986 Level Iron SerPl-[facility] 06/27/2019 N2N/CCD Import Iron Level 81 50-170 Comprehensive 06/27/2019 [facility] Glucose 89 mg/dL Normal 74-106 Metabolic Panel [address] [place], [place] [id number] [phone] BUN 17 mg/dL Normal 7-18 Creatinine 0.9 [...] Phosphatase 76 U/L Normal 45-117 Iron-Tibc-%Sat 06/27/2019 [facility] Serum Iron 81 g/dL Normal 50-170 [address] [place], [place] [id number] [phone] Total Iron Binding Capacity 325 g/dL Normal 250-450 Transferrin %Saturation 25 % Normal 12-57 Laboratory 06/27/2019 [facility] Vitamin 25.0 Low 30.0-100.0 5 test finding [address] D,25-Hydroxy ng/mL [place], [place] [id number] [phone] Vitamin B12 06/27/2019 [facility] Vitamin B12 > 2000 High 193-[address] pg/mL [place], [place] [address] [phone] Folic Acid > 20.0 ng/mL High 3.1-17.5 Laboratory test 06/27/2019 [facility] Ferritin 87 ng/mL Normal 8-252 finding [address] [place] [address] [phone] Protime 06/09/2019 [facility] Protime 28.7 seconds High 12.0-14.4 6 [address] [place] [address] [phone] Inr 2.6 High 0.9-1.1 7 Anticoagulant Therapy? Unknown Protime 06/03/2019 [facility] Protime 23.7 seconds High 12.0-14.4 8 [address] [place] [address] [phone] Inr 2.1 High 0.9-1.1 9 Anticoagulant Therapy? Unknown Protime 05/27/2019 [facility] Protime 35.3 seconds High 12.0-14.4 [address] [place] [address] [phone] Inr 3.4 High 0.9-1.1 10 Anticoagulant Therapy? Unknown Protime 05/13/2019 [facility] Protime 28.7 seconds High 12.0-14.4 [address] [place] [address] [phone] Inr 2.6 High 0.9-1.1 11 Anticoagulant Therapy? YES Date of Last Dose: U Time of Last Dose: U Protime 04/25/2019 [facility] Protime 31.9 seconds High 12.0-14.4 [address] [place] [address] [phone] Inr 3.0 High 0.9-1.1 12 Protime 04/11/2019 [facility] Protime 33.7 seconds High 12.0-14.4 13 [address] [place] [address] [phone] Inr 3.2 High 0.9-1.1 14 Liver Function 04/04/2019 [facility] Total Protein 7.2 g/dL Normal 6.4-8.2 15 Tests [address] [place] [address] [phone] Albumin 3.7 g/dL Normal 3.4-5.0 Globulin 3.5 [...] Protime 26.6 seconds High 12.0-14.4 17 [address] [place] [address] [phone] Inr 2.4 High 0.9-1.1 18 Anticoagulant Therapy? Unknown Protime 03/04/2019 [facility] Protime 32.1 seconds High 12.0-14.4 [address] [place] [address] [phone] Inr 3.0 High 0.9-1.1 19 Anticoagulant Therapy? YES Date of Last Dose: U Time of Last Dose: U Protime 02/22/2019 [facility] Protime 30.6 seconds High 12.0-14.4 20 [address] [place] [address] [phone] Inr 2.9 High 0.9-1.1 21 Anticoagulant Therapy? Unknown Protime 02/15/2019 [facility] Protime 40.6 seconds High 12.0-14.4 22 [address] [place] [address] [phone] Inr 4.1 High 0.9-1.1 23 Anticoagulant Therapy? YES Date of Last Dose: [...] D deficiency has been defined by the [place] of [employer] and an Endocrine Society practice guideline as a level of serum 25-OH vitamin D less than 20 ng/mL (1,2). The Endocrine Society went on to further define vitamin D insufficiency as a level between 21 and 29 ng/mL (2). 1. IOM ([place] of [employer]). 2010. Dietary reference intakes for calcium and D. [place]: The National Academies Press. 2. Augusto MF, Kisha NC, Darby CARRIZALES, et al. Evaluation, treatment, and prevention of vitamin D deficiency: an Endocrine Society clinical practice guideline. JCEM. 2010; 96(7):1911-30. Performed at: RN - [facility] [address] [id number] Medical Fee Clerk: Ember Capone MD, Phone: [phone] I80.02 D68.2 7 THERAPEUTIC INR RANGE: [...] patients. 2.5 - 3.5 Mechanical heart valves 20 D68.2, I80.02 21 THERAPEUTIC INR RANGE: 2.0 - 3.0 DVT, Pulmonary embolus, prophylaxis against venous thrombosis or systemic embolization in high risk patients. 2.5 - 3.5 Mechanical heart valves 22 D68.2 I80.02 23 THERAPEUTIC INR RANGE: 2.0 - 3.0 DVT, Pulmonary embolus, prophylaxis against venous thrombosis or systemic embolization in high risk patients. 2.5 - 3.5 Mechanical heart valves Procedures Date Code Description Status 08/05/2019 90626 EKG-Tracing And Report Completed 05/09/2019 [id number] Mammogram Completed 05/03/2018 [id number] Mammogram Completed 05/01/2017 [id number] Mammogram Completed 04/27/2016 [id number] Mammogram Completed 04/09/2015 [id number] Mammogram Completed 04/25/2014 [id number] Colonoscopy Completed Medical Devices Description No Information Available Encounters Type Date Location Provider Dx Diagnosis Office Visit 08/05/2019 Cardiology Office Barrie Reyna I71.2 Thoracic aortic 9:00a Wilma Goodwin, [facility] aneurysm, without rupture R00.2 Palpitations 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 Office Visit 07/19/2019 2:00p Oncology Office Galilea Benavidez 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., [employer]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 Office Visit 05/16/2019 8:10a Primary Care Leticia M79.602 Pain in left Office MD Talia arm Office Visit 04/06/2019 1:40p Primary Care eLticia I71.2 Thoracic Office MD Talia aortic aneurysm, without rupture Z12.31 Encntr screen mammogram for malignant neoplasm of breast Assessments Date Code Description Provider 08/05/2019 Z79.01 halfway (current) use of Boufal, Angely, DO anticoagulants 08/05/2019 Z79.01 halfway (current) use of Oncology Nurse anticoagulants 08/05/2019 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 (current) use of Boufal, Angely, DO anticoagulants 06/27/2019 Z79.01 halfway (current) use of Oncology Nurse anticoagulants 06/27/2019 [...] factors 06/03/2019 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, 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 06/03/2019 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 [...] factors 05/27/2019 I80.02 Phlebitis and thrombophlebitis of Boufal Angely, DO superficial vessels of left lower extremity 05/27/2019 I80.02 Phlebitis and thrombophlebitis of Oncology Nurse superficial vessels of left lower extremity 05/16/2019 M79.602 Pain in left arm Talia Kelly MD 05/13/2019 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, Angely, 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 05/13/2019 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 05/13/2019 I80.02 Phlebitis and thrombophlebitis of Boufal Angely, DO superficial vessels of left lower extremity 05/13/2019 I80.02 Phlebitis and thrombophlebitis of Oncology Nurse superficial vessels of left lower extremity 04/25/2019 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, Angely, 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 04/25/2019 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 04/25/2019 I80.02 Phlebitis and thrombophlebitis of Boufal Angely, DO superficial vessels of left lower extremity 04/25/2019 I80.02 Phlebitis and thrombophlebitis of Oncology Nurse superficial vessels of left lower extremity 04/11/2019 I71.2 Thoracic aortic aneurysm, without Boufal, Angely, DO rupture 04/11/2019 I71.2 Thoracic aortic aneurysm, without Oncology Nurse rupture 04/11/2019 Z79.01 rat exterminator (current) use of BoufalDevynt, DO anticoagulants 04/11/2019 Z79.01 halfway (current) use of Oncology Nurse anticoagulants 04/06/2019 I71.2 Thoracic aortic aneurysm, without Talia Kelly MD rupture 04/06/2019 Z12.31 Encounter for screening mammogram for Talia Kelly MD malignant neoplasm of breast 03/18/2019 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 Selft, 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 03/18/2019 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 03/18/2019 I80.02 Phlebitis and thrombophlebitis of BoufalLuzAngely, DO superficial vessels of left lower extremity 03/18/2019 I80.02 Phlebitis and thrombophlebitis of Oncology Nurse superficial vessels of left lower extremity 03/04/2019 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, Angely, 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 03/04/2019 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 03/04/2019 I80.02 Phlebitis and thrombophlebitis of BoufalLuzAngely, DO superficial vessels of left lower extremity 03/04/2019 I80.02 Phlebitis and thrombophlebitis of Oncology Nurse superficial vessels of left lower extremity 02/22/2019 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, Angely, 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 02/22/2019 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 02/22/2019 I80.02 Phlebitis and thrombophlebitis of Boufal Angely, DO superficial vessels of left lower extremity 02/22/2019 I80.02 Phlebitis and thrombophlebitis of Oncology Nurse superficial vessels of left lower extremity 02/15/2019 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, Angely, 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 02/15/2019 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 02/15/2019 I80.02 Phlebitis and thrombophlebitis of BoufalLuzAngely, DO superficial vessels of left lower extremity 02/15/2019 I80.02 Phlebitis and thrombophlebitis of Oncology Nurse superficial vessels of left lower extremity Plan of Treatment Future Appointment(s):08/26/2019 8:15 am - Oncology Nurse at Oncology [id number] 9:40 am - Barrie Reyna M.D., FACC at Cardiology [id number] 2:30 pm - Galilea Benavidez NP at Oncology [id number]/05/2019 2:20 pm - Talia Kelly MD at Primary Care [id number]/05/2019 - Barrie Reyna M.D., FACCI71.2 Thoracic aortic aneurysm, without ruptureNew Xrays:CT, Chest W Out Contrast, Ordered: 08/05/19New Orders:Echocardiogram, Ordered: 08/04Comments:Borderline dilation of the ascending aorta. Will follow up with CT of the chest and echo in 6 dpnbryZ09.2 PalpitationsComments:I reassured her.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Comments:On coumadin followed by PCPAllFollow up:Follow up visit in 6 months. Functional Status Functional Condition Comment Date Status Independent with all ADL's Active Glasses Active Mental Status Description No Information Available Referrals Description No Information Available
--- OUTSIDE RECORDS SUMMARY | 2019-09-06 13:35 | XMS REPORT | Continuity of Care Document ---
:1965 External Reference #:[id number] Author Name Oncology Nurse (transmitted by agent of provider Sandie Mcgregor) Address [address] [place] [address] [address] [place] [address] Care Team Providers Name Role Phone Angely Self DO - Hematology & Care Team Information Central Communications Specialist Oncology Sammy Gonzalez MD - Surgery Care Team Information Central Communications Specialist [phone] Lakisha Herrera MD - Family Care Team Information Central Communications Specialist [phone] Medicine Talia Kelly MD - Internal Care Team Information Central Communications Specialist Medicine Problems Active Problems Provider Date Thrombophlebitis [...] of anticoagulant Barrie Reyna, Onset: 08/05/2019 [place], [facility] Palpitations Barrie Reyna, Onset: 08/05/2019 [place], [facility] Social History Type Date Description Comments Sex [...] 16units Elisha [place], 09/05/2015 Propionate Intranasal Once MD 50mcg/Act Daily Suspension Zomig 1 by mouth [...] kg/m2 BSA (Body Surface Area) 2.16 m2 [place] body weight in kilograms 68 kg O2 % BldC Oximetry 95 % ra Ejection Fraction 50-55% 07/19/2019 2:05pm BP Systolic 119 mmHg BP Diastolic 78 mmHg Body Temperature 98.2 F Heart Rate 74 /min Respiratory Rate 16 /min Weight 213.38 lb O2 % BldC Oximetry 97 % Results Test Acquired Date Facility Test Result H/L Range Note Protime 09/02/2019 [facility] Protime 33.8 seconds High 12.0-14.4 1 [address] [place] [address] [phone] Inr 3.3 High 0.9-1.1 2 Anticoagulant Therapy? Unknown Protime 08/26/2019 [facility] Protime 36.2 seconds High 12.0-14.4 [address] [place] [address] [phone] Inr 3.6 High 0.9-1.1 3 Anticoagulant Therapy? Unknown Protime 08/05/2019 [facility] Protime 30.2 seconds High 12.0-14.4 [address] [place] [address] [phone] Inr 2.9 High 0.9-1.1 4 Inr PPP 07/14/2019 N2N/CCD Import Inr International 3.1 High 0.9-1.1 Normalized Ratio Glucose 07/14/2019 N2N/CCD Import Glucose Screen 102 74-106 SerPl-mCnc BUN SerPl-mCnc 07/14/2019 N2N/CCD Import Blood Urea Nitrogen 18 7-18 Creat SerPl-mCnc 07/14/2019 N2N/CCD Import Creatinine 1.3 0.6-1.3 GFR/Bsa pred.non 07/14/2019 N2N/CCD Import Estimated GFR 45 >60 black SerPl (Non- MDRD-ArVRat Citizen [place] GFR/Bsa 07/14/2019 N2N/CCD Import Estimated GFR 54 [...] (Auto) k NFr Bld Auto Protime 06/27/2019 [facility] Protime 30.4 High 12.0-14.[address] [place] [address] [phone] Inr 2.8 High 0.9-1.1 5 CBC W/Automated 06/27/2019 [facility] White Blood 4.7 K/uL Normal 3.1-10.[address] [place] [address] [phone] Red Blood Count 4.43 M/uL Normal 3.90-5.40 [...] 40.4-72.8 Lymph % 31.6 % Normal 20.0-42.0 [place] % 9.1 % Normal 4.3-13.2 Eo% 3.0 % Normal 0.0-6.6 Bas% 1.3 % High 0.0-1.1 Immature Grans 0.4 % Normal 0.0-5.0 NRBC % 0.0 /100WBC < 10/ 100 WBC Neut# 2.57 K/uL Normal 1.8-7.0 Lymph # 1.49 K/uL Normal 1.0-4.0 [place] # 0.43 K/uL Normal 0.3-0.9 Eos # 0.14 K/uL Normal 0.0-0.5 Baso # 0.06 K/uL Normal 0.0-0.1 Immature Grans Absolute 0.02 K/uL NRBC # 0.00 K/uL Folate [facility] 06/27/2019 N2N/CCD Import Folate > 20.0 High 3.1-17.5 Vit B12 [facility] 06/27/2019 N2N/CCD Import Vitamin B12 > 2000 High 193- 986 Level Iron [facility] 06/27/2019 N2N/CCD Import Iron Level 81 50-170 Comprehensive 06/27/2019 [facility] Glucose 89 mg/dL Normal 74-106 Metabolic Panel [address] [place] [address] [phone] BUN 17 mg/dL Normal 7-18 Creatinine 0.9 mg/dL Normal 0.6-1.3 Glom Filtration Rate, Estimate >60 mL/min >60 If >60 mL/min >60 6 BUN/Creat 18.8 ratio Sodium 140 mmol/L Normal [...] Serum Iron 81 g/dL Normal 50-170 [address] [place] [address] [phone] Total Iron Binding Capacity 325 g/dL Normal 250-450 Transferrin %Saturation 25 % Normal 12-57 Laboratory test 06/27/2019 [facility] Ferritin 87 ng/mL Normal 8-[address] [place] [address] [phone] Vitamin B12 And 06/27/2019 [facility] Vitamin B12 > 2000 High 193-[address] pg/[place] [address] [phone] Folic Acid > 20.0 ng/mL High 3.1-17.5 Laboratory 06/27/2019 [facility] Vitamin 25.0 ng/mL Low 30.0-100.0 7 test finding [address] D,25[place] [address] [phone] Protime 06/09/2019 [facility] Protime 28.7 High 12.0-14.[address] [place] [address] [phone] Inr 2.6 High 0.9-1.1 9 Anticoagulant Therapy? Unknown Protime 06/03/2019 [facility] Protime 23.7 seconds High 12.0-14.4 10 [address] [place] [address] [phone] Inr 2.1 High 0.9-1.1 11 Anticoagulant Therapy? Unknown Protime 05/27/2019 [facility] Protime 35.3 seconds High 12.0-14.4 [address] [place] [address] [phone] Inr 3.4 High 0.9-1.1 12 Anticoagulant Therapy? Unknown Protime 05/13/2019 [facility] Protime 28.7 seconds High 12.0-14.4 [address] [place] [address] [phone] Inr 2.6 High 0.9-1.1 13 Anticoagulant Therapy? YES Date of Last Dose: U Time of Last Dose: U Protime 04/25/2019 [facility] Protime 31.9 seconds High 12.0-14.4 [address] [place] [address] [phone] Inr 3.0 High 0.9-1.1 14 Protime 04/11/2019 [facility] Protime 33.7 seconds High 12.0-14.4 15 [address] [place], [place] [address] [phone] Inr 3.2 High 0.9-1.1 16 Liver Function 04/04/2019 [facility] Total Protein 7.2 g/dL Normal 6.4-8.2 17 Tests [address] [place] [address] [phone] Albumin 3.7 g/dL Normal 3.4-5.0 Globulin 3.5 g/dL Normal 1.9-4.3 Alb/Glob 1.1 ratio Bilirubin,Total 1.1 mg/dL High 0.2-1.0 Bilirubin,Direct 0.2 mg/dL Normal 0.0-0.2 Bilirubin,Indirect 0.9 mg/dL Normal 0.0-0.9 Sgot/Ast 12 U/L Low 15-37 18 SGPT/Alt 29 U/L Normal 12-78 Alkaline Phosphatase 78 U/L Normal 45-117 Bilirub Direct 04/04/2019 N2N/CCD Import Direct 0.2 0.0-0.2 SerPl-mCnc Bilirubin Bilirub Indirect 04/04/2019 N2N/CCD Import Indirect 0.9 0.0-0.9 SerPl-mCnc Bilirubin Protime 03/18/2019 [facility] Protime 26.6 seconds High 12.0-14.4 19 [address] [place] [address] [phone] Inr 2.4 High 0.9-1.1 20 Anticoagulant Therapy? Unknown 1 Z79.01 D68.2 2 THERAPEUTIC INR RANGE: 2.0 - 3.0 DVT, Pulmonary embolus, prophylaxis against venous thrombosis or systemic embolization in high risk patients. 2.5 - 3.5 Mechanical heart valves 3 THERAPEUTIC INR RANGE: 2.0 - 3.0 DVT, Pulmonary embolus, prophylaxis against venous thrombosis or systemic embolization in high risk patients. 2.5 - 3.5 Mechanical heart valves 4 THERAPEUTIC INR RANGE: 2.0 - 3.0 DVT, Pulmonary embolus, prophylaxis against venous thrombosis or systemic embolization in high risk patients. 2.5 - 3.5 Mechanical heart valves 5 THERAPEUTIC INR RANGE: 2.0 - 3.0 DVT, Pulmonary embolus, prophylaxis against venous thrombosis or systemic embolization in high risk patients. 2.5 - 3.5 Mechanical heart valves 6 Note: Persistent reduction for 3 months or more in an eGFR <60 mL/min/1.73 m2 defines CKD. Patients with eGFR values >/=60 mL/min/1.73 m2 may also have CKD if evidence of persistent proteinuria is present. The original MDRD equation for estimated GFR is not valid for patients less than 18 years of age. Additional information may be found at www.kdoqi.org. 7 Vitamin D deficiency has been defined by the [place] of [employer] and an Endocrine Society practice guideline as a level of serum 25-OH vitamin D less than 20 ng/mL (1,2). The Endocrine Society went on to further define vitamin D insufficiency as a level between 21 and 29 ng/mL (2). 1. IOM ([place] of [employer]). 2010. Dietary reference intakes for calcium and D. [place]: The National Academies Press. 2. Augusto MF, Kisha HADDAD, Darby CARRIZALES, et al. Evaluation, treatment, and prevention of vitamin D deficiency: an Endocrine Society clinical practice guideline. JCEM. 2010; 96(7):1911-30. Performed at: RN - [facility] [address] [id number] Business Account Specialist: Ember Capone MD, Phone: [phone] I80.02 D68.2 9 THERAPEUTIC INR RANGE: 2.0 - 3.0 DVT, Pulmonary embolus, prophylaxis against venous thrombosis or systemic embolization in high risk patients. 2.5 - 3.5 Mechanical heart valves 10 D68.2 I80.02 11 THERAPEUTIC INR RANGE: 2.0 - 3.0 DVT, Pulmonary embolus, prophylaxis against venous thrombosis or systemic embolization in high risk patients. 2.5 - 3.5 Mechanical heart valves 12 THERAPEUTIC INR RANGE: 2.0 - 3.0 DVT, Pulmonary embolus, prophylaxis against venous thrombosis or systemic embolization in high risk patients. 2.5 - 3.5 Mechanical heart valves 13 THERAPEUTIC INR RANGE: 2.0 - 3.0 DVT, Pulmonary embolus, prophylaxis against venous thrombosis or systemic embolization in high risk patients. 2.5 - 3.5 Mechanical heart valves 14 THERAPEUTIC INR RANGE: 2.0 - 3.0 DVT, Pulmonary embolus, prophylaxis against venous thrombosis or systemic embolization in high risk patients. 2.5 - 3.5 Mechanical heart valves 15 I71.2 Z79.01 16 THERAPEUTIC INR RANGE: 2.0 - 3.0 DVT, Pulmonary embolus, prophylaxis against venous thrombosis or systemic embolization in high risk patients. 2.5 - 3.5 Mechanical heart valves 17 R94.5 18 Values below the stated reference ranges of AST and ALT can be seen in normal populations. Clinical correlation is suggested. 19 D68.2 I80.02 20 THERAPEUTIC INR RANGE: 2.0 - 3.0 DVT, Pulmonary embolus, prophylaxis against venous thrombosis or systemic embolization in high risk patients. 2.5 - 3.5 Mechanical heart valves Procedures Date Code Description Status 08/05/2019 74721 EKG-Tracing And Report Completed 05/09/2019 [id number] Mammogram Completed 05/03/2018 [id number] Mammogram Completed 05/01/2017 [id number] Mammogram Completed 04/27/2016 [id number] Mammogram Completed 04/09/2015 [id number] Mammogram Completed 04/25/2014 [id number] Colonoscopy Completed Medical Devices Description No Information Available Encounters Type Date Location Provider Dx Diagnosis Office Visit 08/05/2019 Cardiology Office Barrie Reyna R00.2 Palpitations 9:00a Wilma Goodwin, [facility] I71.2 Thoracic aortic aneurysm, without rupture Z79.01 long term care social worker (current) use of anticoagulants I71.2 Thoracic aortic aneurysm, without rupture R00.2 Palpitations Z79.01 long term care social worker (current) use of anticoagulants Office Visit 07/19/2019 2:00p Oncology Office Galilea Benavidez 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., [employer]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 Z79.01 long term care social worker (current) use of anticoagulants Office Visit 05/16/2019 8:10a Primary Care Ana Kelly.602 Pain in left Office MD Talia arm Office Visit 04/06/2019 1:40p Primary Care Casper Kelly71.2 Thoracic Office MD Talia aortic aneurysm, without rupture Z12.31 Encntr screen mammogram for malignant neoplasm of breast Assessments Date Code Description Provider 08/26/2019 Z79.01 [facility] (current) use of Angely Self DO anticoagulants 08/26/2019 Z79.01 [facility] (current) use of Oncology Nurse anticoagulants 08/05/2019 R00.2 Palpitations Barrie Reyna M.D., [facility] 08/05/2019 Z79.01 long term care social worker (current) use of Boufal, Angely, DO anticoagulants 08/05/2019 I71.2 Thoracic aortic aneurysm, without Barrie Reyna M.D. 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 07/19/2019 Z79.01 long term care social worker (current) use of Galilea Benavidez, [employer]ATORY [employer] anticoagulants 06/27/2019 Z79.01 long term care social worker (current) use of Boufal, Angely, DO anticoagulants 06/27/2019 Z79.01 long term care social worker (current) use of Oncology Nurse anticoagulants 06/27/2019 [...] aneurysm, without Oncology Nurse rupture 04/11/2019 Z79.01 [facility] (current) use of BokingalDevynt, DO anticoagulants 04/11/2019 Z79.01 long term care social worker (current) use of Oncology Nurse anticoagulants 04/06/2019 I71.2 Thoracic aortic aneurysm, without Talia Kelly MD rupture 04/06/2019 Z12.31 Encounter for screening mammogram for Talia Kelly MD malignant neoplasm of breast 03/18/2019 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2 PalpitationsComments:I reassured her.I71.2 Thoracic aortic aneurysm, without ruptureNew Xrays:CT, Chest W Out Contrast, Ordered: 08/05/19New Orders:Echocardiogram, Ordered: 08/05/19Comments: Borderline dilation of the ascending aorta. Will follow up with CT of the chest and echo in 6 jpeqwcA35.01 long term care social worker (current) use of anticoagulantsComments:On coumadin followed by PCPI71.2 Thoracic aortic aneurysm, without ruptureNew Xrays :CT, Chest W Out Contrast, Ordered: 08/05/19New Orders:Echocardiogram, Ordered: 08/05/19Comments:Borderline dilation of the ascending aorta. Will follow up with CT of the chest and echo in 6 opefrhN23.2 PalpitationsComments:I reassured her.Z79.01 long term care social worker (current) use of anticoagulantsComments:On coumadin followed by PCPAllFollow up:Follow up visit in 6 months. Functional Status Functional Condition Comment Date Status Independent with all ADL's Active Glasses Active Mental Status Description No Information Available Referrals Refer to Reason for Referral Status Appt Date please kindly evaluate this 54 y/o with sudden onset Created pruritis, started in her abdomen region, and now in her inner thighs, abdomen. Denies use of new products, had similar episode years ago. Thank you.
--- OUTSIDE RECORDS SUMMARY | 2019-09-06 13:35 | XMS REPORT | Continuity of Care Document ---
:1965 External Reference #:[id number] Author Name Barrie Reyna M.D., [facility] (transmitted by agent of provider Michaela Narayanan) Address [address] [place] [address] Care Team Providers Name Role Phone Angely Self DO - Hematology & Care Team Information Terry Cloth Cutter Hand [phone] Oncology Sammy Gonzalez MD - Surgery Care Team Information Terry Cloth Cutter Hand Lakisha Herrera MD - Family Care Team Information Terry Cloth Cutter Hand Medicine Talia Kelly MD - Internal Care Team Information Terry Cloth Cutter Hand Medicine Problems Active Problems Provider Date Thrombophlebitis of superficial veins of lower Angely Self DO Onset: extremity Hypercoagulability state Angely Self DO Onset: 12/04/2015 Lymphadenopathy Angely Self DO Onset: 12/04/2015 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 Oncology Nurse Onset: 09/10/2017 Venous varices Oncology Nurse Onset: 09/10/2017 Vitamin D deficiency Angely Self DO Onset: 07/06/2018 Vitamin B deficiency Angely Self DO Onset: 07/06/2018 Iron deficiency Angely Self DO Onset: 07/06/2018 Hyperlipidemia Elisha Houston MD Onset: 07/28/2018 Aneurysm of thoracic aorta Elisha Houston MD Onset: 07/28/2018 Lichen sclerosus et atrophicus Elisha Houston MD Onset: 07/28/2018 Social History Type Date Description Comments Sex [...] Boufal, 06/29/2017 5mg Tablets every day as DO Angely directed Folbee 1 tabl by mouth 30tabs Boufal, 01/02/2016 2.5-25-1mg every day Angely, DO Tablets Coumadin 9 tabl by mouth 150tabs Boufal, 12/29/2015 1mg Tablets every other day DO Angely alterating with 10 as directed Fluticasone Use 2 Sprays 16units Elisha Houston, 09/05/2015 Propionate Intranasal Once 50mcg/Act Daily Suspension Zomig 1 by mouth at 6tabs [place], 06/19/2015 2.5mg Tablets onset of carrizales, september MD Talia repeat x 1 after an [...] kg/m2 BSA (Body Surface Area) 2.16 m2 [place] body weight in kilograms 68 kg O2 % BldC Oximetry 95 % ra Ejection Fraction 50-55% 07/19/2019 2:05pm BP Systolic 119 mmHg BP Diastolic 78 mmHg Body Temperature 98.2 F Heart Rate 74 /min Respiratory Rate 16 /min Weight 213.38 lb O2 % BldC Oximetry 97 % Results Test Acquired Facility Test Result H/L Range Note Date Prothrombin time 07/14/2019 N2N/CCD Import Prothrombin Time 32.9 High 12.0-14. 4 Inr PPP 07/14/2019 N2N/CCD Import Inr International 3.1 High 0.9-1.1 Normalized Ratio Glucose 07/14/2019 N2N/CCD Import Glucose Screen 102 74-106 SerPl-mCnc BUN SerPl-mCnc 07/14/2019 N2N/CCD Import Blood Urea Nitrogen 18 7-18 Creat SerPl-mCnc 07/14/2019 N2N/CCD Import Creatinine 1.3 0.6-1.3 GFR/Bsa pred.non 07/14/2019 N2N/CCD Import Estimated GFR 45 >60 black SerPl (Non- MDRD-ArVRat [place] GFR/Bsa 07/14/2019 N2N/CCD Import Estimated GFR 54 >60 pred.black SerPl () MDRD-ArVRat BUN/Creat SerPl 07/14/2019 N2N/CCD Import BUN/Creatinine 13.8 Ratio Sodium 07/14/2019 N2N/CCD Import Sodium Level 141 136-145 SerPl-sCnc Potassium 07/14/2019 N2N/CCD Import Potassium Level 3.7 3.5-5.1 SerPl-sCnc Chloride 07/14/2019 N2N/CCD Import Chloride Level 109 High 98-107 SerPl-sCnc Co2 SerPl-sCnc 07/14/2019 N2N/CCD Import Carbon Dioxide 27 21-32 Level Anion Gap 07/14/2019 N2N/CCD Import Anion Gap [...] (Alt/SGPT) Alp SerPl-cCnc 07/14/2019 N2N/CCD Import Alkaline 77 45-117 Phosphatase Troponin I 07/14/2019 N2N/CCD Import Troponin I < 0.015 SerPl-mCnc WBC # XXX Auto 07/14/2019 N2N/CCD Import White Blood Count 5.1 3.1-10.7 RBC # Bld Auto 07/14/2019 N2N/CCD Import Red Blood Count 4.23 3.90-5.4 0 Hgb Bld-mCnc 07/14/2019 N2N/CCD Import Hemoglobin 13.5 11.6-15. 8 Hct VFr Bld Auto 07/14/2019 N2N/CCD Import Hematocrit 39.5 36.0-46. 1 MCV RBC Auto 07/14/2019 N2N/CCD Import Mean Corpuscular 93.4 80.9-99. Volume 0 MCH RBC Qn Auto 07/14/2019 N2N/CCD Import Mean Corpuscular 31.9 25.9- 32. Hemoglobin 7 MCHC RBC 07/14/2019 N2N/CCD Import Mean Corpuscular 34.2 30.8-34. Auto-mCnc Hemoglobin Concent 3 Platelet # Bld 07/14/2019 N2N/CCD Import Platelet Count 246 155-360 Auto RDW RBC Auto 07/14/2019 N2N/CCD Import Red Cell 42.4 36-47 Distribution Width RDW RBC Auto-Rto 07/14/2019 N2N/CCD Import RDW Coefficient of 12.5 11.7- 14. Variation 4 PMV Bld Auto 07/14/2019 N2N/CCD Import Mean Platelet 10.5 8.9-12.4 Volume Neutrophils/leuk 07/14/2019 N2N/CCD Import Neutrophils (%) 52.7 40.4- 72. NFr Bld Auto (Auto) 8 nRBC # Bld Auto 07/14/2019 N2N/CCD Import Nucleated RBC 0.00 Absolute Count (auto) Imm Granulocytes 07/14/2019 N2N/CCD Import Immature 0.02 # Bld Auto Granulocyte # (Auto) Basophils # Bld 07/14/2019 N2N/CCD Import Basophils # (Auto) 0.05 0.0- 0.1 Auto Eosinophil # Bld 07/14/2019 N2N/CCD Import Eosinophils # 0.15 0.0-0.5 Auto (Auto) Monocytes # Bld 07/14/2019 N2N/CCD Import Monocytes # (Auto) 0.41 0.3- 0.9 Auto Lymphocytes # 07/14/2019 N2N/CCD Import Lymphocytes # 1.80 1.0-4.0 Bld Auto (Auto) Neutrophils # 07/14/2019 N2N/CCD Import Neutrophils # 2.71 1.8-7.0 Bld Auto (Auto) nRBC/100 WBC Bld 07/14/2019 N2N/CCD Import Nucleated Red Blood 0.0 < 10 / Auto-Rto Cells % (auto) 100 WBC Imm 07/14/2019 N2N/CCD Import Immature 0.4 0.0-5.0 Granulocytes/faith Granulocyte % k NFr Bld Auto (Auto) Basophils/leuk 07/14/2019 N2N/CCD Import Basophils (%) 1.0 0.0-1.1 NFr Bld Auto (Auto) Eosinophil/leuk 07/14/2019 N2N/CCD Import Eosinophils (%) 2.9 0.0-6.6 NFr Bld Auto (Auto) Monocytes/leuk 07/14/2019 N2N/CCD Import Monocytes (%) 8.0 4.3-13.2 NFr Bld Auto (Auto) Lymphocytes/leuk 07/14/2019 N2N/CCD Import Lymphocytes (%) 35.0 20.0- 42. NFr Bld Auto (Auto) 0 Folate 06/27/2019 N2N/CCD Import Folate > 20.0 High 3.1-17.5 SerPl-mCnc Vit B12 06/27/2019 N2N/CCD Import Vitamin B12 Level > 2000 High 193-986 SerPl-mCnc Iron SerPl-mCnc 06/27/2019 N2N/CCD Import Iron Level 81 50-170 Laboratory test 06/27/2019 [facility] Vitamin 25.0 Low 30.0-100 1, 2 finding [address],25-Hydroxy ng/mL .0 [place] [address] [phone] Vitamin B12 And 06/27/2019 [facility] Vitamin B12 > 2000 High 193-[address] pg/[place] [address] [phone] Folic Acid > 20.0 ng/mL High 3.1-17.5 Laboratory test 06/27/2019 [facility] Ferritin 87 ng/mL Normal 8-252 finding [address] [place] [address] [phone] Iron-Tibc-%Sat 06/27/2019 [facility] Serum Iron 81 g/dL Normal 50-170 [address] [place], [place] [id number] [phone] Total Iron Binding Capacity 325 g/dL Normal 250-450 Transferrin %Saturation 25 % Normal 12-57 Comprehensive 06/27/2019 [facility] Glucose 89 mg/dL Normal 74-106 Metabolic Panel [address] [place], [place] [id number] [phone] BUN 17 mg/dL Normal 7-18 Creatinine 0.9 mg/dL Normal 0.6-1.3 Glom Filtration Rate, Estimate >60 mL/min >60 If >60 mL/min >60 3 BUN/Creat 18.8 ratio Sodium 140 mmol/L Normal [...] 12-78 Alkaline Phosphatase 76 U/L Normal 45-117 CBC W/Automated 06/27/2019 [facility] White Blood 4.7 K/uL Normal 3.1-10.[address] [place] [address] [phone] Red Blood Count 4.43 M/uL Normal 3.90-5.40 [...] 40.4-72.8 Lymph % 31.6 % Normal 20.0-42.0 [place] % 9.1 % Normal 4.3-13.2 Eo% 3.0 % Normal 0.0-6.6 Bas% 1.3 % High 0.0-1.1 Immature Grans 0.4 % Normal 0.0-5.0 NRBC % 0.0 /100WBC < 10/ 100 WBC Neut# 2.57 K/uL Normal 1.8-7.0 Lymph # 1.49 K/uL Normal 1.0-4.0 [place] # 0.43 K/uL Normal 0.3-0.9 Eos # 0.14 K/uL Normal 0.0-0.5 Baso # 0.06 K/uL Normal 0.0-0.1 Immature Grans Absolute 0.02 K/uL NRBC # 0.00 K/uL Protime 06/27/2019 [facility] Protime 30.4 seconds High 12.0-14.4 [address] [place] [address] [phone] Inr 2.8 High 0.9-1.1 4 Protime 06/09/2019 [facility] Protime 28.7 seconds High 12.0-14.4 5 [address] [place] [address] [phone] Inr 2.6 High 0.9-1.1 6 Anticoagulant Therapy? Unknown Protime 06/03/2019 [facility] Protime 23.7 seconds High 12.0-14.4 7 [address] [place] [address] [phone] Inr 2.1 High 0.9-1.1 8 Anticoagulant Therapy? Unknown Protime 05/27/2019 [facility] Protime 35.3 seconds High 12.0-14.4 [address] [place] [address] [phone] Inr 3.4 High 0.9-1.1 9 Anticoagulant Therapy? Unknown Protime 05/13/2019 [facility] Protime 28.7 seconds High 12.0-14.4 [address] [place] [address] [phone] Inr 2.6 High 0.9-1.1 10 Anticoagulant Therapy? YES Date of Last Dose: U Time of Last Dose: U Protime 04/25/2019 [facility] Protime 31.9 seconds High 12.0-14.4 [address] [place] [address] [phone] Inr 3.0 High 0.9-1.1 11 Protime 04/11/2019 [facility] Protime 33.7 seconds High 12.0-14.4 12 [address] [place] [address] [phone] Inr 3.2 High 0.9-1.1 13 Bilirub Direct 04/04/2019 N2N/CCD Import Direct Bilirubin 0.2 0.0-0.2 SerPl-mCnc Bilirub Indirect 04/04/2019 N2N/CCD Import Indirect 0.9 0.0-0.9 SerPl-mCnc Bilirubin Liver Function 04/04/2019 [facility] Total Protein 7.2 g/dL Normal 6.4-8.2 14 Tests [address] [place] [address] [phone] Albumin 3.7 g/dL Normal 3.4-5.0 Globulin 3.5 g/dL Normal 1.9-4.3 Alb/Glob 1.1 ratio Bilirubin,Total 1.1 mg/dL High 0.2-1.0 Bilirubin,Direct 0.2 mg/dL Normal 0.0-0.2 Bilirubin,Indirect 0.9 mg/dL Normal 0.0-0.9 Sgot/Ast 12 U/L Low 15-37 15 SGPT/Alt 29 U/L Normal 12-78 Alkaline Phosphatase 78 U/L Normal 45-117 Protime 03/18/2019 [facility] Protime 26.6 seconds High 12.0-14.4 16 [address] [place] [address] [phone] Inr 2.4 High 0.9-1.1 17 Anticoagulant Therapy? Unknown Protime 03/04/2019 [facility] Protime 32.1 seconds High 12.0-14.4 [address] [place] [address] [phone] Inr 3.0 High 0.9-1.1 18 Anticoagulant Therapy? YES Date of Last Dose: U Time of Last Dose: U Protime 02/22/2019 [facility] Protime 30.6 seconds High 12.0-14.4 19 [address] [place] [address] [phone] Inr 2.9 High 0.9-1.1 20 Anticoagulant Therapy? Unknown Protime 02/15/2019 [facility] Protime 40.6 seconds High 12.0-14.4 21 [address] [place] [address] [phone] Inr 4.1 High 0.9-1.1 22 Anticoagulant Therapy? YES Date of Last Dose: U Time of Last Dose: U Protime 02/08/2019 [facility] Protime 32.8 seconds High 12.0-14.4 [address] [place] [address] [phone] Inr 3.1 High 0.9-1.1 23 Anticoagulant Therapy? YES Date of Last Dose: U Time of Last Dose: U 1 Z79.01 D68.2 2 Vitamin D deficiency has been defined by the [place] of [employer] and an Endocrine Society practice guideline as a level of serum 25-OH vitamin D less than 20 ng/mL (1,2). The Endocrine Society went on to further define vitamin D insufficiency as a level between 21 and 29 ng/mL (2). 1. IOM ([place] of [employer]). 2010. Dietary reference intakes for calcium and D. [place]: The National Academies Press. 2. Augusto LEE, Kisha NC, Darby CARRIZALES, et al. Evaluation, treatment, and prevention of vitamin D deficiency: an Endocrine Society clinical practice guideline. JCEM. 2010; 96(7):1911-30. Performed at: [facility] [address] [id number] Cafe Aide: Ember Capone MD, Phone: [phone] Note: Persistent reduction for 3 months or more in an eGFR <60 mL/min/1.73 m2 defines CKD. Patients with eGFR values >/=60 mL/min/1.73 m2 may also have CKD if evidence of persistent proteinuria is present. The original MDRD equation for estimated GFR is not valid for patients less than 18 years of age. Additional information may be found at www.kdoqi.org. 4 THERAPEUTIC INR RANGE: 2.0 - 3.0 DVT, Pulmonary embolus, prophylaxis against venous thrombosis or systemic embolization in high risk patients. 2.5 - 3.5 Mechanical heart valves 5 I80.02 D68.2 6 THERAPEUTIC INR RANGE: 2.0 - 3.0 DVT, Pulmonary embolus, prophylaxis against venous thrombosis or systemic embolization in high risk patients. 2.5 - 3.5 Mechanical heart valves 7 D68.2 I80.02 8 THERAPEUTIC INR RANGE: 2.0 - 3.0 DVT, Pulmonary embolus, prophylaxis against venous thrombosis or systemic embolization in high risk patients. 2.5 - 3.5 Mechanical heart valves 9 THERAPEUTIC INR RANGE: 2.0 - 3.0 [...] 2.5 - 3.5 Mechanical heart valves 12 I71.2 Z79.01 13 THERAPEUTIC INR RANGE: 2.0 - 3.0 DVT, Pulmonary embolus, prophylaxis against venous thrombosis or systemic embolization in high risk patients. 2.5 - 3.5 Mechanical heart valves 14 R94.5 15 Values below the stated reference ranges of AST and ALT can be seen in normal populations. Clinical correlation is suggested. 16 D68.2 I80.02 17 THERAPEUTIC INR RANGE: 2.0 - 3.0 DVT, Pulmonary embolus, prophylaxis against venous thrombosis or systemic embolization in high risk patients. 2.5 - 3.5 Mechanical heart valves 18 THERAPEUTIC INR RANGE: 2.0 - 3.0 DVT, Pulmonary embolus, prophylaxis against venous thrombosis or systemic embolization in high risk patients. 2.5 - 3.5 Mechanical heart valves 19 D68.2, I80.02 20 THERAPEUTIC INR RANGE: 2.0 - 3.0 DVT, Pulmonary embolus, prophylaxis against venous thrombosis or systemic embolization in high risk patients. 2.5 - 3.5 Mechanical heart valves 21 D68.2 I80.02 22 THERAPEUTIC INR RANGE: 2.0 - 3.0 DVT, Pulmonary embolus, prophylaxis against venous thrombosis or systemic embolization in high risk patients. 2.5 - 3.5 Mechanical heart valves 23 THERAPEUTIC INR RANGE: 2.0 - 3.0 DVT, Pulmonary embolus, prophylaxis against venous thrombosis or systemic embolization in high risk patients. 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 Z79.01 prison (current) use of anticoagulants Office Visit 05/16/2019 8:10a Primary Care Aleida Kelly79.602 Pain in left Office MD Talia arm Office Visit 04/06/2019 1:40p Primary Care Leticia I71.2 Thoracic Office MD Talia aortic aneurysm, without rupture Z12.31 Encntr screen mammogram for malignant neoplasm of breast Assessments Date Code Description Provider 07/19/2019 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 07/19/2019 Z79.01 ocean transportation intermediary (current) use of Reema, Galilea B., [employer]IM[employer] ATTENDANT anticoagulants 06/27/2019 Z79.01 ocean transportation intermediary (current) use of BoDevyn fryt, DO anticoagulants 06/27/2019 Z79.01 ocean transportation intermediary (current) use of Oncology Nurse anticoagulants 06/27/2019 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, Angely, DO factors 06/27/2019 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 Oncology Nurse factors 06/09/2019 I80.02 Phlebitis and thrombophlebitis of Boufal, Angely, DO superficial vessels of left lower extremity 06/09/2019 I80.02 Phlebitis and thrombophlebitis of Oncology Nurse superficial vessels of left lower extremity 06/09/2019 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, Angely, DO factors 06/09/2019 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 Oncology Nurse factors 06/03/2019 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, Angely, 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 06/03/2019 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 Oncology Nurse factors 06/03/2019 I80.02 Phlebitis and thrombophlebitis of Boufal, Angely, DO superficial vessels of left lower extremity 06/03/2019 I80.02 Phlebitis and thrombophlebitis of Oncology Nurse superficial vessels of left lower extremity 05/27/2019 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, Angely, DO factors 05/27/2019 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 Oncology Nurse factors 05/27/2019 I80.02 Phlebitis and thrombophlebitis of Boufal, Angely, DO superficial vessels of left lower extremity 05/27/2019 I80.02 Phlebitis and thrombophlebitis of Oncology Nurse superficial vessels of left lower extremity 05/16/2019 M79.602 Pain in left arm Talia Kelly MD 05/13/2019 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, Angely, DO factors 05/13/2019 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 Oncology Nurse factors 05/13/2019 I80.02 Phlebitis and thrombophlebitis of Boufal, Angely, DO superficial vessels of left lower extremity 05/13/2019 I80.02 Phlebitis and thrombophlebitis of Oncology Nurse superficial vessels of left lower extremity 04/25/2019 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, Angely, DO factors 04/25/2019 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 Oncology Nurse factors 04/25/2019 I80.02 Phlebitis and thrombophlebitis of Boufal, Angely, DO superficial vessels of left lower extremity 04/25/2019 I80.02 Phlebitis and thrombophlebitis of Oncology Nurse superficial vessels of left lower extremity 04/11/2019 I71.2 Thoracic aortic aneurysm, without Boufal, Angely, DO rupture 04/11/2019 I71.2 Thoracic aortic aneurysm, without Oncology Nurse rupture 04/11/2019 Z79.01 ocean transportation intermediary (current) use of Boufal, Angely, DO anticoagulants 04/11/2019 Z79.01 ocean transportation intermediary (current) use of Oncology Nurse anticoagulants 04/06/2019 I71.2 Thoracic aortic aneurysm, without Talia Kelly MD rupture 04/06/2019 Z12.31 Encounter for screening mammogram for Talia Kelly MD malignant neoplasm of breast 03/18/2019 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, Angely, DO factors 03/18/2019 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 Oncology Nurse factors 03/18/2019 I80.02 Phlebitis and thrombophlebitis of Boufal, Angely, DO superficial vessels of left lower extremity 03/18/2019 I80.02 Phlebitis and thrombophlebitis of Oncology Nurse superficial vessels of left lower extremity 03/04/2019 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, Angely, DO factors 03/04/2019 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 Oncology Nurse factors 03/04/2019 I80.02 Phlebitis and thrombophlebitis of Boufal, Angely, DO superficial vessels of left lower extremity 03/04/2019 I80.02 Phlebitis and thrombophlebitis of Oncology Nurse superficial vessels of left lower extremity 02/22/2019 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, Angely, DO factors 02/22/2019 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 Oncology Nurse factors 02/22/2019 I80.02 Phlebitis and thrombophlebitis of Angely Self, DO superficial vessels of left lower extremity 02/22/2019 I80.02 Phlebitis and thrombophlebitis of Oncology Nurse superficial vessels of left lower extremity 02/15/2019 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 Devyn Selft, DO factors 02/15/2019 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 Oncology Nurse factors 02/15/2019 I80.02 Phlebitis and thrombophlebitis of Devyn Selft, DO superficial vessels of left lower extremity 02/15/2019 I80.02 Phlebitis and thrombophlebitis of Oncology Nurse superficial vessels of left lower extremity 02/08/2019 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 Devyn Selft, DO factors 02/08/2019 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 Oncology Nurse factors 02/08/2019 I80.02 Phlebitis and thrombophlebitis of Angely Self, DO superficial vessels of left lower extremity 02/08/2019 I80.02 Phlebitis and thrombophlebitis of Oncology Nurse superficial vessels of left lower extremity Plan of Treatment Future Appointment(s):11/22/2019 2:30 pm - Galilea Benavidez NP at Oncology [facility]0410/05/2019 2:20 pm - Talia Kelly MD at [facility] [id number] - Barrie Reyna M.D., FACCAllNew Xrays:CT, Chest W Out Contrast, Ordered: 08/05/19New Orders:Echocardiogram, Ordered: 08/05/19 Functional Status Functional Condition Comment Date Status Independent with all ADL's Active Glasses Active Mental Status Description No Information Available Referrals Description No Information Available
--- OUTSIDE RECORDS SUMMARY | 2019-09-06 13:35 | XMS REPORT | Continuity of Care Document ---
:1965 External Reference #:[id number] Author Name Oncology Nurse (transmitted by agent of provider Giuliana Portillo) Address [address] [place] [address] [address] [place] [address] Care Team Providers Name Role Phone Angely Self DO - Hematology & Care Team Information Licensed Customs Broker [phone] Oncology Sammy Gonzalez MD - Surgery Care Team Information Licensed Customs Broker Lakisha Herrera MD - Family Care Team Information Licensed Customs Broker Medicine Talia Kelly MD - Internal Care Team Information Licensed Customs Broker Medicine Problems Active Problems Provider Date Thrombophlebitis [...] of anticoagulant Barrie Reyna, Onset: 08/05/2019 [place], [facility] Palpitations Barrie Reyna, Onset: 08/05/2019 [place], [facility] Social History Type Date Description Comments [...] kg/m2 BSA (Body Surface Area) 2.16 m2 [place] body weight in kilograms 68 kg O2 [...] 30.2 seconds High 12.0-14.4 1 [address] [place] [address] [phone] Inr 2.9 High 0.9-1.1 2 Inr PPP 07/14/2019 N2N/CCD Import Inr International 3.1 High 0.9-1.1 Normalized Ratio Glucose 07/14/2019 N2N/CCD Import Glucose Screen 102 74-106 SerPl-mCnc BUN SerPl-mCnc 07/14/2019 N2N/CCD Import Blood Urea Nitrogen 18 7-18 Creat SerPl-mCnc 07/14/2019 N2N/CCD Import Creatinine 1.3 0.6-1.3 GFR/Bsa pred.non 07/14/2019 N2N/CCD Import Estimated GFR 45 >60 black SerPl (Non- MDRD-ArVRat Mauritian GFR/Bsa 07/14/2019 N2N/CCD Import Estimated GFR 54 [...] (Auto) k NFr Bld Auto Protime 06/27/2019 [facility] Protime 30.4 High 12.0-14.[address] seconds [place], [place] [id number] [phone] Inr 2.8 High 0.9-1.1 3 CBC W/Automated 06/27/2019 [facility] White Blood 4.7 K/uL Normal 3.1-10.[address] Count [place], [place] [address] [phone] Red Blood Count 4.43 M/uL Normal 3.90-5.40 [...] Lymph % 31.6 % Normal 20.0-42.0 [place] % 9.1 % Normal 4.3-13.2 Eo% 3.0 % Normal 0.0-6.6 Bas% 1.3 % High 0.0-1.1 Immature Grans 0.4 % Normal 0.0-5.0 NRBC % 0.0 /100WBC < 10/ 100 WBC Neut# 2.57 K/uL Normal 1.8-7.0 Lymph # 1.49 K/uL Normal 1.0-4.0 [place] # 0.43 K/uL Normal 0.3-0.9 Eos # 0.14 K/uL Normal 0.0-0.5 Baso # 0.06 K/uL Normal 0.0-0.1 Immature Grans Absolute 0.02 K/uL NRBC # 0.00 K/uL Folate SerPl-mCnc 06/27/2019 N2N/CCD Import Folate > 20.0 High 3.1-17.5 Vit B12 SerPl-[facility] 06/27/2019 N2N/CCD Import Vitamin B12 > 2000 High 193- 986 Level Iron SerPl-[facility] 06/27/2019 N2N/CCD Import Iron Level 81 50-170 Comprehensive 06/27/2019 [facility] Glucose 89 mg/dL Normal 74-106 Metabolic Panel [address] [place], [place] [id number] [phone] BUN 17 mg/dL Normal 7-18 Creatinine 0.9 [...] Phosphatase 76 U/L Normal 45-117 Iron-Tibc-%Sat 06/27/2019 [facility] Serum Iron 81 g/dL Normal 50-170 [address] [place], [place] [address] [phone] Total Iron Binding Capacity 325 g/dL Normal 250-450 Transferrin %Saturation 25 % Normal 12-57 Laboratory 06/27/2019 [facility] Vitamin 25.0 Low 30.0-100.0 5 test finding [address] D,25-Hydroxy ng/[place] [address] [phone] Vitamin B12 06/27/2019 [facility] Vitamin B12 > 2000 High 193-[address] pg/mL [place], [place] [id number] [phone] Folic Acid > 20.0 ng/mL High 3.1-17.5 Laboratory test 06/27/2019 [facility] Ferritin 87 ng/mL Normal 8-252 finding [address] [place] [address] [phone] Protime 06/09/2019 [facility] Protime 28.7 seconds High 12.0-14.4 6 [address] [place] [address] [phone] Inr 2.6 High 0.9-1.1 7 Anticoagulant Therapy? Unknown Protime 06/03/2019 [facility] Protime 23.7 seconds High 12.0-14.4 8 [address] [place] [address] [phone] Inr 2.1 High 0.9-1.1 9 Anticoagulant Therapy? Unknown Protime 05/27/2019 [facility] Protime 35.3 seconds High 12.0-14.4 [address] [place] [address] [phone] Inr 3.4 High 0.9-1.1 10 Anticoagulant Therapy? Unknown Protime 05/13/2019 [facility] Protime 28.7 seconds High 12.0-14.4 [address] [place] [address] [phone] Inr 2.6 High 0.9-1.1 11 Anticoagulant Therapy? YES Date of Last Dose: U Time of Last Dose: U Protime 04/25/2019 [facility] Protime 31.9 seconds High 12.0-14.4 [address] [place] [address] [phone] Inr 3.0 High 0.9-1.1 12 Protime 04/11/2019 [facility] Protime 33.7 seconds High 12.0-14.4 13 [address] [place] [address] [phone] Inr 3.2 High 0.9-1.1 14 Liver Function 04/04/2019 [facility] Total Protein 7.2 g/dL Normal 6.4-8.2 15 Tests [address] [place] [address] [phone] Albumin 3.7 g/dL Normal 3.4-5.0 Globulin 3.5 [...] Protime 26.6 seconds High 12.0-14.4 17 [address] [place] [address] [phone] Inr 2.4 High 0.9-1.1 18 Anticoagulant Therapy? Unknown Protime 03/04/2019 [facility] Protime 32.1 seconds High 12.0-14.4 [address] [place] [address] [phone] Inr 3.0 High 0.9-1.1 19 Anticoagulant Therapy? YES Date of Last Dose: U Time of Last Dose: U Protime 02/22/2019 [facility] Protime 30.6 seconds High 12.0-14.4 20 [address] [place] [address] [phone] Inr 2.9 High 0.9-1.1 21 Anticoagulant Therapy? Unknown Protime 02/15/2019 [facility] Protime 40.6 seconds High 12.0-14.4 22 [address] [place] [address] [phone] Inr 4.1 High 0.9-1.1 23 Anticoagulant Therapy? YES Date of Last Dose: U Time of Last Dose: U Protime 02/08/2019 [facility] Protime 32.8 seconds High 12.0-14.4 [address] [place] [address] [phone] Inr 3.1 High 0.9-1.1 24 Anticoagulant Therapy? YES Date of Last Dose: [...] D deficiency has been defined by the [place] of Medicine and an Endocrine Society practice guideline as a level of serum 25-OH vitamin D less than 20 ng/mL (1,2). The Endocrine Society went on to further define vitamin D insufficiency as a level between 21 and 29 ng/mL (2). 1. IOM ([place] of Medicine). 2010. Dietary reference intakes for calcium and D. [place]: The National Academies Press. 2. Augusto MF, Kisha NC, Darby CARRIZALES, et al. Evaluation, treatment, and prevention of vitamin D deficiency: an Endocrine Society clinical practice guideline. JCEM. 2010; 96(7):1911-30. Performed at: RN - [facility] [address] [id number] Collar Tailor: Ember Capone MD, Phone: [phone] I80.02 D68.2 7 THERAPEUTIC INR RANGE: [...] patients. 2.5 - 3.5 Mechanical heart valves 24 THERAPEUTIC INR RANGE: 2.0 - 3.0 DVT, Pulmonary embolus, prophylaxis against venous thrombosis or systemic embolization in high risk patients. 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 Z79.01 alf (current) use of anticoagulants Office Visit 05/16/2019 8:10a Primary Care Leticia M79.602 Pain in left Office MD Talia arm Office Visit 04/06/2019 1:40p Primary Care Leticia I71.2 Thoracic Office MD Talia aortic aneurysm, without rupture Z12.31 Encntr screen mammogram for malignant neoplasm of breast Assessments Date Code Description Provider 08/05/2019 Z79.01 alf (current) use of Boufal, Angely, DO anticoagulants 08/05/2019 Z79.01 alf (current) use of Oncology Nurse anticoagulants 08/05/2019 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 Galilea Benavidez, WARD SERVICE SUPERVISOR clotting factors 07/19/2019 Z79.01 alf (current) use of Galilea Benavidez, WARD SERVICE SUPERVISOR anticoagulants 06/27/2019 Z79.01 alf (current) use of Boufal, Angely, DO anticoagulants 06/27/2019 Z79.01 termite control servicer (current) use of Oncology Nurse anticoagulants 06/27/2019 [...] aneurysm, without Oncology Nurse rupture 04/11/2019 Z79.01 termite control servicer (current) use of Boufal Angely, DO anticoagulants 04/11/2019 Z79.01 termite control servicer (current) use of Oncology Nurse anticoagulants 04/06/2019 [...] factors 02/22/2019 I80.02 Phlebitis and thrombophlebitis of Boufal, Angely, DO superficial vessels of left lower extremity 02/22/2019 I80.02 Phlebitis and thrombophlebitis of Oncology Nurse superficial vessels of left lower extremity 02/15/2019 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, Angely, 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 02/15/2019 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 02/15/2019 I80.02 Phlebitis and thrombophlebitis of Boufal, Angely, DO superficial vessels of left lower extremity 02/15/2019 I80.02 Phlebitis and thrombophlebitis of Oncology Nurse superficial vessels of left lower extremity 02/08/2019 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, Angely, 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 02/08/2019 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 02/08/2019 I80.02 Phlebitis and thrombophlebitis of Angely Self, DO superficial vessels of left lower extremity 02/08/2019 I80.02 Phlebitis and thrombophlebitis of Oncology Nurse superficial vessels of left lower extremity Plan of Treatment Future Appointment(s):08/26/2019 8:15 am - Oncology Nurse at Oncology [id number] 9:40 am - Barrie Reyna M.D., FACC at Cardiology [id number] 2:30 pm - Galilea Benavidez WARD SERVICE SUPERVISOR at Oncology [id number]/05/2019 2:20 pm - Talia Kelly MD at Primary Care [id number]/05/2019 - Barrie Reyna M.D., FACCI71.2 Thoracic aortic aneurysm, without ruptureNew Xrays:CT, Chest W Out Contrast, Ordered: 08/05/19New Orders:Echocardiogram, Ordered: 08/04Comments:Borderline dilation of the ascending aorta. Will follow up with CT of the chest and echo in 6 mmzumsS25.2 PalpitationsComments:I reassured her.Z79.01 alf (current) use of anticoagulantsComments:On coumadin followed by PCPAllFollow up:Follow up visit in 6 months. Functional Status Functional Condition Comment Date Status Independent with all ADL's Active Glasses Active Mental Status Description No Information Available Referrals Description No Information Available
--- OUTSIDE RECORDS SUMMARY | 2019-09-06 13:35 | XMS REPORT | Continuity of Care Document ---
:1965 External Reference #:[id number] Author Name Oncology Nurse (transmitted by agent of provider Jeanne Estes) Address [address] [place] [address] [address] [place] [address] Care Team Providers Name Role Phone Angely Self DO - Hematology & Care Team Information Certifed Refrigeration Operator Oncology Sammy Gonzalez MD - Surgery Care Team Information Certifed Refrigeration Operator Lakisha Herrera MD - Family Care Team Information Certifed Refrigeration Operator [phone] Medicine Talia Kelly MD - Internal Care Team Information Certifed Refrigeration Operator Medicine Problems Active Problems Provider Date Thrombophlebitis [...] Tobacco Use Start: Unknown Never Smoked Cigarettes ETOH Use Currently consumes alcohol socially Tobacco Use Start: Unknown Patient denies history of smoking Recreational Drug Use Denies Drug Use Tobacco Use Start: Unknown Patient has never smoked Smoking Status Reviewed: 05/16/19 Patient has never smoked Allergies, Adverse Reactions, Alerts Active Allergies Reaction [...] mouth 30tabs Boufal, 01/02/2016 2.5-25-1mg every day DO Angely Tablets Coumadin 9 tabl by mouth 150tabs [...] Available Vital Signs Date Vital Result Comment 07/19/2019 2:05pm BP Systolic 119 mmHg BP Diastolic 78 mmHg Body Temperature 98.2 F Heart Rate 74 /min Respiratory Rate 16 /min Weight 213.38 lb O2 % BldC Oximetry 97 % 07/14/2019 9:30pm Weight 185.00 lb Results Test Acquired Facility Test Result H/L [...] GFR 45 >60 black SerPl (Non- MDRD-ArVRat [place] GFR/Bsa 07/14/2019 N2N/CCD Import Estimated GFR 54 [...] 25.0 Low 30.0-100 1, [address] D,25-Hydroxy ng/mL .0 [place] [address] [phone] Vitamin B12 And 06/27/2019 [facility] Vitamin B12 > 2000 High 193-[address] pg/[place] [address] [phone] Folic Acid > 20.0 ng/mL High 3.1-17.5 Laboratory test 06/27/2019 [facility] Ferritin 87 ng/mL Normal 8-252 finding [address] [place] [address] [phone] Iron-Tibc-%Sat 06/27/2019 [facility] Serum Iron 81 g/dL Normal 50-170 [address] [place] [address] [phone] Total Iron Binding Capacity 325 g/dL Normal 250-450 Transferrin %Saturation 25 % Normal 12-57 Comprehensive 06/27/2019 [facility] Glucose 89 mg/dL Normal 74-106 Metabolic Panel [address] [place] [address] [phone] BUN 17 mg/dL Normal 7-18 Creatinine 0.9 [...] Blood 4.7 K/uL Normal 3.1-10.7 Diff [address] [place] [address] [phone] Red Blood Count 4.43 M/uL Normal 3.90-5.40 [...] 40.4-72.8 Lymph % 31.6 % Normal 20.0-42.0 [place] % 9.1 % Normal 4.3-13.2 Eo% 3.0 % Normal 0.0-6.6 Bas% 1.3 % High 0.0-1.1 Immature Grans 0.4 % Normal 0.0-5.0 NRBC % 0.0 /100WBC < 10/ 100 WBC Neut# 2.57 K/uL Normal 1.8-7.0 Lymph # 1.49 K/uL Normal 1.0-4.0 [place] # 0.43 K/uL Normal 0.3-0.9 Eos # 0.14 K/uL Normal 0.0-0.5 Baso # 0.06 K/uL Normal 0.0-0.1 Immature Grans Absolute 0.02 K/uL NRBC # 0.00 K/uL Protime 06/27/2019 [facility] Protime 30.4 seconds High 12.0-14.4 [address] [place] [address] [phone] Inr 2.8 High 0.9-1.1 4 Protime 06/09/2019 [facility] Protime 28.7 seconds High 12.0-14.4 5 [address] [place] [address] [phone] Inr 2.6 High 0.9-1.1 6 Anticoagulant Therapy? Unknown Protime 06/03/2019 [facility] Protime 23.7 seconds High 12.0-14.4 7 [address] [place] [address] [phone] Inr 2.1 High 0.9-1.1 8 Anticoagulant Therapy? Unknown Protime 05/27/2019 [facility] Protime 35.3 seconds High 12.0-14.4 [address] [place], [place] [address] [phone] Inr 3.4 High 0.9-1.1 9 Anticoagulant Therapy? Unknown Protime 05/13/2019 [facility] Protime 28.7 seconds High 12.0-14.4 [address] [place] [address] [phone] Inr 2.6 High 0.9-1.1 10 Anticoagulant Therapy? YES Date of Last Dose: U Time of Last Dose: U Protime 04/25/2019 [facility] Protime 31.9 seconds High 12.0-14.4 [address] [place] [address] [phone] Inr 3.0 High 0.9-1.1 11 Protime 04/11/2019 [facility] Protime 33.7 seconds High 12.0-14.4 12 [address] [place], [place] [address] [phone] Inr 3.2 High 0.9-1.1 13 Bilirub Direct 04/04/2019 N2N/CCD Import Direct Bilirubin 0.2 0.0-0.2 SerPl-mCnc Bilirub Indirect 04/04/2019 N2N/CCD Import Indirect 0.9 0.0-0.9 SerPl-mCnc Bilirubin Liver Function 04/04/2019 [facility] Total Protein 7.2 g/dL Normal 6.4-8.2 14 Tests [address] [place], [place] [address] [phone] Albumin 3.7 g/dL Normal 3.4-5.0 Globulin 3.5 g/dL Normal 1.9-4.3 Alb/Glob 1.1 ratio Bilirubin,Total 1.1 mg/dL High 0.2-1.0 Bilirubin,Direct 0.2 mg/dL Normal 0.0-0.2 Bilirubin,Indirect 0.9 mg/dL Normal 0.0-0.9 Sgot/Ast 12 U/L Low 15-37 15 SGPT/Alt 29 U/L Normal 12-78 Alkaline Phosphatase 78 U/L Normal 45-117 Protime 03/18/2019 [facility] Protime 26.6 seconds High 12.0-14.4 16 [address] [place] [address] [phone] Inr 2.4 High 0.9-1.1 17 Anticoagulant Therapy? Unknown Protime 03/04/2019 [facility] Protime 32.1 seconds High 12.0-14.4 [address] [place] [address] [phone] Inr 3.0 High 0.9-1.1 18 Anticoagulant Therapy? YES Date of Last Dose: U Time of Last Dose: U Protime 02/22/2019 [facility] Protime 30.6 seconds High 12.0-14.4 19 [address] [place] [address] [phone] Inr 2.9 High 0.9-1.1 20 Anticoagulant Therapy? Unknown Protime 02/15/2019 [facility] Protime 40.6 seconds High 12.0-14.4 21 [address] [place] [address] [phone] Inr 4.1 High 0.9-1.1 22 Anticoagulant Therapy? YES Date of Last Dose: U Time of Last Dose: U Protime 02/08/2019 [facility] Protime 32.8 seconds High 12.0-14.4 [address] [place] [address] [phone] Inr 3.1 High 0.9-1.1 23 Anticoagulant Therapy? YES Date of Last Dose: U Time of Last Dose: U 1 Z79.01 D68.2 2 Vitamin D deficiency has been defined by the [place] of Medicine and an Endocrine Society practice guideline as a level of serum 25-OH vitamin D less than 20 ng/mL (1,2). The Endocrine Society went on to further define vitamin D insufficiency as a level between 21 and 29 ng/mL (2). 1. IOM ([place] of Medicine). 2010. Dietary reference intakes for calcium and D. [place]: The National Academies Press. 2. Augusto MF, Kisha NC, Darby CARRIZALES, et al. Evaluation, treatment, and prevention of vitamin D deficiency: an Endocrine Society clinical practice guideline. JCEM. 2010; 96(7):1911-30. Performed at: - [facility] [id number] [place] Core Feeder: Ember Capone MD, Phone: [phone] Note: Persistent reduction for 3 months [...] valves Procedures Date Code Description Status 05/09/2019 [id number] Mammogram Completed 05/03/2018 [id number] Mammogram Completed 05/01/2017 [id number] Mammogram Completed 04/27/2016 [id number] Mammogram Completed 04/09/2015 [id number] Mammogram Completed 04/25/2014 [id number] Colonoscopy Completed Medical Devices Description No Information Available Encounters Type Date Location Provider Dx Diagnosis Office Visit 07/19/2019 Oncology Office Galilea Benavidez 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 Z79.01 long-term (current) use of anticoagulants Office Visit 05/16/2019 8:10a Primary Care Aleida Kelly79.602 Pain in left Office MD Talia arm Office Visit 04/06/2019 1:40p Primary Care Leticia I71.2 Thoracic Office MD Talia aortic aneurysm, without rupture Z12.31 Encntr screen mammogram for malignant neoplasm of breast Assessments Date Code Description Provider 07/19/2019 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 07/19/2019 Z79.01 terminal supervisor (current) use of Galilea Benavidez ASBESTOS MICROSCOPIST anticoagulants 06/27/2019 Z79.01 long-term (current) use of Angely Self DO anticoagulants 06/27/2019 Z79.01 terminal supervisor (current) use of Oncology Nurse anticoagulants 06/27/2019 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 Angely Self DO factors 06/27/2019 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 Oncology Nurse factors 06/09/2019 I80.02 Phlebitis and thrombophlebitis of Luz Selfaret, DO superficial vessels of left lower extremity 06/09/2019 I80.02 Phlebitis and thrombophlebitis of Oncology Nurse superficial vessels of left lower extremity 06/09/2019 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 Devyn Selft, DO factors 06/09/2019 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 Oncology Nurse factors 06/03/2019 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 Devyn Selft, DO factors 06/03/2019 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 Oncology Nurse factors 06/03/2019 I80.02 Phlebitis and thrombophlebitis of Devyn Selft, DO superficial vessels of left lower extremity 06/03/2019 I80.02 Phlebitis and thrombophlebitis of Oncology Nurse superficial vessels of left lower extremity 05/27/2019 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 Devyn Selft, DO factors 05/27/2019 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 Oncology Nurse factors 05/27/2019 I80.02 Phlebitis and thrombophlebitis of Devyn Selft, DO superficial vessels of left lower extremity 05/27/2019 I80.02 Phlebitis and thrombophlebitis of Oncology Nurse superficial vessels of left lower extremity 05/16/2019 M79.602 Pain in left arm Talia Kelly MD 05/13/2019 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 StephanufalDevynt, DO factors 05/13/2019 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 Oncology Nurse factors 05/13/2019 I80.02 Phlebitis and thrombophlebitis of ShandaalDevynt, DO superficial vessels of left lower extremity 05/13/2019 I80.02 Phlebitis and thrombophlebitis of Oncology Nurse superficial vessels of left lower extremity 04/25/2019 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LuzAngely, DO factors 04/25/2019 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 Oncology Nurse factors 04/25/2019 I80.02 Phlebitis and thrombophlebitis of Boufal, Angely, DO superficial vessels of left lower extremity 04/25/2019 I80.02 Phlebitis and thrombophlebitis of Oncology Nurse superficial vessels of left lower extremity 04/11/2019 I71.2 Thoracic aortic aneurysm, without Boufal, Angely, DO rupture 04/11/2019 I71.2 Thoracic aortic aneurysm, without Oncology Nurse rupture 04/11/2019 Z79.01 terminal supervisor (current) use of Boufal, Angely, DO anticoagulants 04/11/2019 Z79.01 terminal supervisor (current) use of Oncology Nurse anticoagulants 04/06/2019 I71.2 Thoracic aortic aneurysm, without Talia Kelly MD rupture 04/06/2019 Z12.31 Encounter for screening mammogram for Talia Kelly MD malignant neoplasm of breast 03/18/2019 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 Stephanufal, Angely, DO factors 03/18/2019 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 [...] 02/15/2019 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, Angely, DO factors 02/15/2019 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 Oncology Nurse factors 02/15/2019 I80.02 Phlebitis and thrombophlebitis of Angely Self, DO superficial vessels of left lower extremity 02/15/2019 I80.02 Phlebitis and thrombophlebitis of Oncology Nurse superficial vessels of left lower extremity 02/08/2019 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 Angely Self, DO factors 02/08/2019 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 Oncology Nurse factors 02/08/2019 I80.02 Phlebitis and thrombophlebitis of Angely Self, DO superficial vessels of left lower extremity 02/08/2019 I80.02 Phlebitis and thrombophlebitis of Oncology Nurse superficial vessels of left lower extremity Plan of Treatment Future Appointment(s):11/22/2019 2:30 pm - Galilea Benavidez NP at Oncology [id number]/05/2019 2:20 pm - Talia Kelly MD at Primary Care [id number] - Galilea Benavidez, NP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Comments:Continue CoumadinFollow up:FU 4 qxrdlbQ14.01 terminal supervisor (current ) use of anticoagulantsComments:Pt continues to tolerate coumadin with no adverse effects. Functional Status Functional Condition Comment Date Status Independent with all ADL's Active Mental Status Description No Information Available Referrals Description No Information Available
--- OUTSIDE RECORDS SUMMARY | 2019-09-06 13:35 | XMS REPORT | Continuity of Care Document ---
:1965 External Reference #:[id number] Author Name Oncology Nurse (transmitted by agent of provider Sandie Mcgregor) Address [address] [place] [address] [address] [place] [address] Care Team Providers Name Role Phone Angely Self DO - Hematology & Care Team Information Flat Screen Worker [phone] Oncology Sammy Gonzalez MD - Surgery Care Team Information Flat Screen Worker Lakisha Herrera MD - Family Care Team Information Flat Screen Worker Medicine Talia Kelly MD - Internal Care Team Information Flat Screen Worker [phone] Medicine Problems Active Problems Provider Date Thrombophlebitis [...] of anticoagulant Barrie Reyna, Onset: 08/05/2019 Wilma, [facility] Palpitations Barrie Reyna, Onset: 08/05/2019 Wilma, [facility] Social History Type Date Description [...] kg/m2 BSA (Body Surface Area) 2.16 m2 [place] body weight in kilograms 68 kg O2 [...] Protime 33.8 seconds High 12.0-14.4 1 [address] [place] [address] [phone] Inr 3.3 High 0.9-1.1 2 Anticoagulant Therapy? Unknown Protime 08/26/2019 CRM Protime 36.2 seconds High 12.0-14.4 [address] [place] [address] [phone] Inr 3.6 High 0.9-1.1 3 Anticoagulant Therapy? Unknown Protime 08/05/2019 CRM Protime 30.2 seconds High 12.0-14.4 [address] [place] [address] [phone] Inr 2.9 High 0.9-1.1 4 Inr PPP 07/14/2019 N2N/CCD Import Inr International 3.1 High 0.9-1.1 Normalized Ratio Glucose 07/14/2019 N2N/CCD Import Glucose Screen 102 74-106 SerPl-mCnc BUN SerPl-mCnc 07/14/2019 N2N/CCD Import Blood Urea Nitrogen 18 7-18 Creat SerPl-mCnc 07/14/2019 N2N/CCD Import Creatinine 1.3 0.6-1.3 GFR/Bsa pred.non 07/14/2019 N2N/CCD Import Estimated GFR 45 >60 black SerPl (Non- MDRD-ArVRat Slovak GFR/Bsa 07/14/2019 N2N/CCD Import Estimated GFR 54 [...] 30.4 High 12.0-14.[address] [place] [address] [phone] Inr 2.8 High 0.9-1.1 5 CBC W/Automated 06/27/2019 [facility] White Blood 4.7 K/uL Normal 3.1-10.[address] [place] [address] [phone] Red Blood Count 4.43 M/uL Normal 3.90-5.40 [...] 40.4-72.8 Lymph % 31.6 % Normal 20.0-42.0 [place] % 9.1 % Normal 4.3-13.2 Eo% 3.0 % Normal 0.0-6.6 Bas% 1.3 % High 0.0-1.1 Immature Grans 0.4 % Normal 0.0-5.0 NRBC % 0.0 /100WBC < 10/ 100 WBC Neut# 2.57 K/uL Normal 1.8-7.0 Lymph # 1.49 K/uL Normal 1.0-4.0 [place] # 0.43 K/uL Normal 0.3-0.9 Eos # 0.14 K/uL Normal 0.0-0.5 Baso # 0.06 K/uL Normal 0.0-0.1 Immature Grans Absolute 0.02 K/uL NRBC # 0.00 K/uL Folate [facility] 06/27/2019 N2N/CCD Import Folate > 20.0 High 3.1-17.5 Vit B12 [facility] 06/27/2019 N2N/CCD Import Vitamin B12 > 2000 High 193- 986 Level Iron [facility] 06/27/2019 N2N/CCD Import Iron Level 81 50-170 Comprehensive 06/27/2019 [facility] Glucose 89 mg/dL Normal 74-106 Metabolic Panel [address] [place] [address] [phone] BUN 17 mg/dL Normal 7-18 Creatinine 0.9 [...] Serum Iron 81 g/dL Normal 50-170 [address] [place] [address] [phone] Total Iron Binding Capacity 325 g/dL Normal 250-450 Transferrin %Saturation 25 % Normal 12-57 Laboratory test 06/27/2019 [facility] Ferritin 87 ng/mL Normal 8-[address] [place] [address] [phone] Vitamin B12 And 06/27/2019 [facility] Vitamin B12 > 2000 High 193-[address] pg/[place] [address] [phone] Folic Acid > 20.0 ng/mL High 3.1-17.5 Laboratory 06/27/2019 [facility] Vitamin 25.0 ng/mL Low 30.0-100.0 7 test finding [address] D,25[place] [address] [phone] Protime 06/09/2019 CRM Protime 28.7 High 12.0-14.[address] [place] [address] [phone] Inr 2.6 High 0.9-1.1 9 Anticoagulant Therapy? Unknown Protime 06/03/2019 [facility] Protime 23.7 seconds High 12.0-14.4 10 [address] [place] [address] [phone] Inr 2.1 High 0.9-1.1 11 Anticoagulant Therapy? Unknown Protime 05/27/2019 [facility] Protime 35.3 seconds High 12.0-14.4 [address] [place] [address] [phone] Inr 3.4 High 0.9-1.1 12 Anticoagulant Therapy? Unknown Protime 05/13/2019 [facility] Protime 28.7 seconds High 12.0-14.4 [address] [place] [address] [phone] Inr 2.6 High 0.9-1.1 13 Anticoagulant Therapy? YES Date of Last Dose: U Time of Last Dose: U Protime 04/25/2019 [facility] Protime 31.9 seconds High 12.0-14.4 [address] [place] [address] [phone] Inr 3.0 High 0.9-1.1 14 Protime 04/11/2019 [facility] Protime 33.7 seconds High 12.0-14.4 15 [address] [place], [place] [address] [phone] Inr 3.2 High 0.9-1.1 16 Liver Function 04/04/2019 [facility] Total Protein 7.2 g/dL Normal 6.4-8.2 17 Tests [address] [place] [address] [phone] Albumin 3.7 g/dL Normal 3.4-5.0 Globulin 3.5 [...] Indirect 0.9 0.0-0.9 SerPl-mCnc Bilirubin Protime 03/18/2019 [facility] Protime 26.6 seconds High 12.0-14.4 19 [address] [place] [address] [phone] Inr 2.4 High 0.9-1.1 20 Anticoagulant Therapy? [...] D deficiency has been defined by the [place] of [employer] and an Endocrine Society practice guideline as a level of serum 25-OH vitamin D less than 20 ng/mL (1,2). The Endocrine Society went on to further define vitamin D insufficiency as a level between 21 and 29 ng/mL (2). 1. IOM ([place] of [employer]). 2010. Dietary reference intakes for calcium and D. [place]: The National Academies Press. 2. Augusto MF, Kisha HADDAD, Darby CARRIZALES, et al. Evaluation, treatment, and prevention of vitamin D deficiency: an Endocrine Society clinical practice guideline. JCEM. 2010; 96(7):1911-30. Performed at: RN - [facility] [address] [id number] Order Checker Packer Processer: Ember Capone MD, Phone: [phone] I80.02 D68.2 9 THERAPEUTIC INR RANGE: [...] valves Procedures Date Code Description Status 08/05/2019 96848 EKG-Tracing And Report Completed 05/09/2019 [id number] Mammogram Completed 05/03/2018 [id number] Mammogram Completed 05/01/2017 [id number] Mammogram Completed 04/27/2016 [id number] Mammogram Completed 04/09/2015 [id number] Mammogram Completed 04/25/2014 [id number] Colonoscopy Completed Medical Devices Description No Information Available Encounters Type Date Location Provider Dx Diagnosis Office Visit 08/05/2019 Cardiology Office Barrie Reyna R00.2 Palpitations 9:00a Wilma Goodwin, [facility] I71.2 Thoracic aortic aneurysm, without rupture Z79.01 terminal computer operator (current) use of anticoagulants I71.2 Thoracic aortic aneurysm, without rupture R00.2 Palpitations Z79.01 terminal computer operator (current) use of anticoagulants Office Visit 07/19/2019 2:00p Oncology Office Galilea Benavidez 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., [employer]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 Z79.01 terminal computer operator (current) use of anticoagulants Office Visit 05/16/2019 8:10a Primary Care Ana Kelly.602 Pain in left Office MD Talia arm Office Visit 04/06/2019 1:40p Primary Care Casper Kelly71.2 Thoracic Office MD Talia aortic aneurysm, without rupture Z12.31 Encntr screen mammogram for malignant neoplasm of breast Assessments Date Code Description Provider 09/02/2019 Z79.01 custodial (current) use of Angely Self DO anticoagulants 09/02/2019 Z79.01 custodial (current) use of Oncology Nurse anticoagulants 08/26/2019 Z79.01 terminal computer operator (current) use of Boufal, Angely, DO anticoagulants 08/26/2019 Z79.01 terminal computer operator (current) use of Oncology Nurse anticoagulants 08/05/2019 R00.2 Palpitations Barrie Reyna M.D., [facility] 08/05/2019 Z79.01 terminal computer operator (current) use of Boufal, Angely, DO anticoagulants 08/05/2019 I71.2 Thoracic aortic aneurysm, without Barrie Reyna M.D. 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 Galilea Benavidez, [employer] clotting factors 07/19/2019 Z79.01 custodial (current) use of Galilea Benavidez, [employer] anticoagulants 06/27/2019 Z79.01 terminal computer operator (current) use of Boufal, Angely, DO anticoagulants 06/27/2019 Z79.01 custodial (current) use of Oncology Nurse anticoagulants 06/27/2019 [...] without Oncology Nurse rupture 04/11/2019 Z79.01 terminal computer operator (current) use of Angely Self, DO anticoagulants 04/11/2019 Z79.01 terminal computer operator (current) use of Oncology Nurse anticoagulants 04/06/2019 I71.2 Thoracic aortic aneurysm, without Talia Kelly MD rupture 04/06/2019 Z12.31 Encounter for screening mammogram for Talia Kelly MD malignant neoplasm of breast 03/18/2019 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 Selft, 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 03/18/2019 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 03/18/2019 I80.02 Phlebitis and thrombophlebitis of Devyn Selft, DO superficial vessels of left lower extremity 03/18/2019 I80.02 Phlebitis and thrombophlebitis of Oncology Nurse superficial vessels of left lower extremity Plan of Treatment Future Appointment(s):02/20/2020 9:40 am - Barrie Reyna M.D., FACC at Cardiology Ctsuru0311/22/2019 2:30 pm - Galilea Benavidez [employer]GER at Oncology Kvdgnq9610/05/2019 2:20 pm - Talia Kelly MD at Primary Care [id number] - Barrie Reyna M.D., FACCR00.2 PalpitationsComments:I reassured her.I71.2 Thoracic aortic aneurysm, without ruptureNew Xrays:CT, Chest W Out Contrast, Ordered: 08/05/19New Orders:Echocardiogram, Ordered: 08/05/19Comments: Borderline dilation of the ascending aorta. Will follow up with CT of the chest and echo in 6 xmdqyfQ89.01 custodial (current) use of anticoagulantsComments:On coumadin followed by PCPI71.2 Thoracic aortic aneurysm, without ruptureNew Xrays :CT, Chest W Out Contrast, Ordered: 08/05/19New Orders:Echocardiogram, Ordered: 08/05/19Comments:Borderline dilation of the ascending aorta. Will follow up with CT of the chest and echo in 6 pisoswG99.2 PalpitationsComments:I reassured her.Z79.01 terminal computer operator (current) use of anticoagulantsComments:On coumadin followed by [...]
--- OUTSIDE RECORDS SUMMARY | 2019-09-06 13:35 | XMS REPORT | Continuity of Care Document ---
:1965 External Reference #:[id number] Author Name Oncology Nurse (transmitted by agent of provider Jeanne Estes) Address [address] [place] [address] [address] [place] [address] Care Team Providers Name Role Phone Angely Self DO - Hematology & Care Team Information Nail Technician Teacher Oncology Sammy Gonzalez MD - Surgery Care Team Information Nail Technician Teacher [phone] Lakisha Herrera MD - Family Care Team Information Nail Technician Teacher Medicine Talia Kelly MD - Internal Care Team Information Nail Technician Teacher Medicine Problems Active Problems Provider Date Thrombophlebitis [...] of anticoagulant Barrie Reyna, Onset: 08/05/2019 [place], [facility] Palpitations Barrie Reyna, Onset: 08/05/2019 [place], [facility] Social History Type Date Description Comments Sex [...] kg/m2 BSA (Body Surface Area) 2.16 m2 [place] body weight in kilograms 68 kg O2 % BldC Oximetry 95 % ra Ejection Fraction 50-55% 07/19/2019 2:05pm BP Systolic 119 mmHg BP Diastolic 78 mmHg Body Temperature 98.2 F Heart Rate 74 /min Respiratory Rate 16 /min Weight 213.38 lb O2 % BldC Oximetry 97 % Results Test Acquired Date Facility Test Result H/L Range Note Protime 08/26/2019 [facility] Protime 36.2 seconds High 12.0-14.4 1 [address] [place] [address] [phone] Inr 3.6 High 0.9-1.1 2 Anticoagulant Therapy? Unknown Protime 08/05/2019 [facility] Protime 30.2 seconds High 12.0-14.4 [address] [place], [place] [id number] [phone] Inr 2.9 High 0.9-1.1 3 Inr PPP 07/14/2019 N2N/CCD Import Inr International 3.1 High 0.9-1.1 Normalized Ratio Glucose 07/14/2019 N2N/CCD Import Glucose Screen 102 74-106 SerPl-mCnc BUN SerPl-mCnc 07/14/2019 N2N/CCD Import Blood Urea Nitrogen 18 7-18 Creat SerPl-mCnc 07/14/2019 N2N/CCD Import Creatinine 1.3 0.6-1.3 GFR/Bsa pred.non 07/14/2019 N2N/CCD Import Estimated GFR 45 >60 black SerPl (Non- MDRD-ArVRat [place] GFR/Bsa 07/14/2019 N2N/CCD Import Estimated GFR 54 [...] (Auto) k NFr Bld Auto Protime 06/27/2019 [facility] Protime 30.4 High 12.0-14.[address] seconds [place], [place] [id number] [phone] Inr 2.8 High 0.9-1.1 4 CBC W/Automated 06/27/2019 [facility] White Blood 4.7 K/uL Normal 3.1-10.[address] [place] [place] [address] [phone] Red Blood Count 4.43 M/uL Normal 3.90-5.40 [...] 40.4-72.8 Lymph % 31.6 % Normal 20.0-42.0 [place] % 9.1 % Normal 4.3-13.2 Eo% 3.0 % Normal 0.0-6.6 Bas% 1.3 % High 0.0-1.1 Immature Grans 0.4 % Normal 0.0-5.0 NRBC % 0.0 /100WBC < 10/ 100 WBC Neut# 2.57 K/uL Normal 1.8-7.0 Lymph # 1.49 K/uL Normal 1.0-4.0 [place] # 0.43 K/uL Normal 0.3-0.9 Eos # 0.14 K/uL Normal 0.0-0.5 Baso # 0.06 K/uL Normal 0.0-0.1 Immature Grans Absolute 0.02 K/uL NRBC # 0.00 K/uL Folate [facility] 06/27/2019 N2N/CCD Import Folate > 20.0 High 3.1-17.5 Vit B12 [facility] 06/27/2019 N2N/CCD Import Vitamin B12 > 2000 High 193- 986 Level Iron [facility] 06/27/2019 N2N/CCD Import Iron Level 81 50-170 Comprehensive 06/27/2019 [facility] Glucose 89 mg/dL Normal 74-106 Metabolic Panel [address] [place], [place] [id number] [phone] BUN 17 mg/dL Normal 7-18 Creatinine 0.9 mg/dL Normal 0.6-1.3 Glom Filtration Rate, Estimate >60 mL/min >60 If >60 mL/min >60 5 BUN/Creat 18.8 ratio Sodium 140 mmol/L Normal [...] Phosphatase 76 U/L Normal 45-117 Iron-Tibc-%Sat 06/27/2019 [facility] Serum Iron 81 g/dL Normal 50-170 [address] [place], [place] [address] [phone] Total Iron Binding Capacity 325 g/dL Normal 250-450 Transferrin %Saturation 25 % Normal 12-57 Laboratory test 06/27/2019 [facility] Ferritin 87 ng/mL Normal 8-252 finding [address] [place] [address] [phone] Vitamin B12 And 06/27/2019 [facility] Vitamin B12 > 2000 High 193-[address] pg/[place] [address] [phone] Folic Acid > 20.0 ng/mL High 3.1-17.5 Laboratory 06/27/2019 [facility] Vitamin 25.0 ng/mL Low 30.0-100.0 6 test finding [address] D,25-[place] [address] [phone] Protime 06/09/2019 [facility] Protime 28.7 High 12.0-14.[address] [place] [place] [address] [phone] Inr 2.6 High 0.9-1.1 8 Anticoagulant Therapy? Unknown Protime 06/03/2019 [facility] Protime 23.7 seconds High 12.0-14.[address] [place] [address] [phone] Inr 2.1 High 0.9-1.1 10 Anticoagulant Therapy? Unknown Protime 05/27/2019 [facility] Protime 35.3 seconds High 12.0-14.4 [address] [place] [address] [phone] Inr 3.4 High 0.9-1.1 11 Anticoagulant Therapy? Unknown Protime 05/13/2019 [facility] Protime 28.7 seconds High 12.0-14.4 [address] [place] [address] [phone] Inr 2.6 High 0.9-1.1 12 Anticoagulant Therapy? YES Date of Last Dose: U Time of Last Dose: U Protime 04/25/2019 [facility] Protime 31.9 seconds High 12.0-14.4 [address] [place] [address] [phone] Inr 3.0 High 0.9-1.1 13 Protime 04/11/2019 [facility] Protime 33.7 seconds High 12.0-14.4 14 [address] [place] [address] [phone] Inr 3.2 High 0.9-1.1 15 Liver Function 04/04/2019 [facility] Total Protein 7.2 g/dL Normal 6.4-8.2 16 Tests [address] [place] [address] [phone] Albumin 3.7 g/dL Normal 3.4-5.0 Globulin 3.5 g/dL Normal 1.9-4.3 Alb/Glob 1.1 ratio Bilirubin,Total 1.1 mg/dL High 0.2-1.0 Bilirubin,Direct 0.2 mg/dL Normal 0.0-0.2 Bilirubin,Indirect 0.9 mg/dL Normal 0.0-0.9 Sgot/Ast 12 U/L Low 15-37 17 SGPT/Alt 29 U/L Normal 12-78 Alkaline Phosphatase 78 U/L Normal 45-117 Bilirub Direct 04/04/2019 N2N/CCD Import Direct 0.2 0.0-0.2 SerPl-mCnc Bilirubin Bilirub Indirect 04/04/2019 N2N/CCD Import Indirect 0.9 0.0-0.9 SerPl-mCnc Bilirubin Protime 03/18/2019 [facility] Protime 26.6 seconds High 12.0-14.4 18 [address] [place] [address] [phone] Inr 2.4 High 0.9-1.1 19 Anticoagulant Therapy? Unknown Protime 03/04/2019 [facility] Protime 32.1 seconds High 12.0-14.4 [address] [place] [address] [phone] Inr 3.0 High 0.9-1.1 20 Anticoagulant Therapy? YES Date of Last Dose: [...] 2.5 - 3.5 Mechanical heart valves 5 Note: Persistent reduction for 3 months or more in an eGFR <60 mL/min/1.73 m2 defines CKD. Patients with eGFR values >/=60 mL/min/1.73 m2 may also have CKD if evidence of persistent proteinuria is present. The original MDRD equation for estimated GFR is not valid for patients less than 18 years of age. Additional information may be found at www.kdoqi.org. 6 Vitamin D deficiency has been defined by the [place] [employer] and an Endocrine Society practice guideline as a level of serum 25-OH vitamin D less than 20 ng/mL (1,2). The Endocrine Society went on to further define vitamin D insufficiency as a level between 21 and 29 ng/mL (2). 1. IOM ([place] [employer]). 2010. Dietary reference intakes for calcium and D. [place]: The National Academies Press. 2. Augusto MF, Kisha HADDAD, Darby CARRIZALES, et al. Evaluation, treatment, and prevention of vitamin D deficiency: an Endocrine Society clinical practice guideline. JCEM. 2010; 96(7):1911-30. Performed at: RN - [facility] [address] [id number] Front Office Supervisor: Ember Capone MD, Phone: [phone] I80.02 D68.2 8 THERAPEUTIC INR RANGE: 2.0 - 3.0 DVT, Pulmonary embolus, prophylaxis against venous thrombosis or systemic embolization in high risk patients. 2.5 - 3.5 Mechanical heart valves 9 D68.2 I80.02 10 THERAPEUTIC INR RANGE: 2.0 - 3.0 [...] 2.5 - 3.5 Mechanical heart valves 14 I71.2 Z79.01 15 THERAPEUTIC INR RANGE: 2.0 - 3.0 DVT, Pulmonary embolus, prophylaxis against venous thrombosis or systemic embolization in high risk patients. 2.5 - 3.5 Mechanical heart valves 16 R94.5 17 Values below the stated reference ranges of AST and ALT can be seen in normal populations. Clinical correlation is suggested. 18 D68.2 I80.02 19 THERAPEUTIC INR RANGE: 2.0 - 3.0 DVT, Pulmonary embolus, prophylaxis against venous thrombosis or systemic embolization in high risk patients. 2.5 - 3.5 Mechanical heart valves 20 THERAPEUTIC INR RANGE: 2.0 - 3.0 DVT, Pulmonary embolus, prophylaxis against venous thrombosis or systemic embolization in high risk patients. 2.5 - 3.5 Mechanical heart valves Procedures Date Code Description Status 08/05/2019 72814 EKG-Tracing And Report Completed 05/09/2019 [id number] Mammogram Completed 05/03/2018 [id number] Mammogram Completed 05/01/2017 [id number] Mammogram Completed 04/27/2016 [id number] Mammogram Completed 04/09/2015 [id number] Mammogram Completed 04/25/2014 [id number] Colonoscopy Completed Medical Devices Description No Information Available Encounters Type Date Location Provider Dx Diagnosis Office Visit 08/05/2019 Cardiology Office Barrie Reyna R00.2 Palpitations 9:00a [facility], [facility] I71.2 Thoracic aortic aneurysm, without rupture Z79.01 snf (current) use of anticoagulants I71.2 Thoracic aortic aneurysm, without rupture R00.2 Palpitations Z79.01 middle or intermediate school principal (current) use of anticoagulants Office Visit 07/19/2019 2:00p Oncology Office Galilea Benavidez 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., [employer]UG BO[employer] ENGINEER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 Z79.01 middle or intermediate school principal (current) use of anticoagulants Office Visit 05/16/2019 8:10a Primary Care Aleida Kelly79.602 Pain in left Office MD Talia arm Office Visit 04/06/2019 1:40p Primary Care Casper Kelly71.2 Thoracic Office MD Talia aortic aneurysm, without rupture Z12.31 Encntr screen mammogram for malignant neoplasm of breast Assessments Date Code Description Provider 08/05/2019 R00.2 Palpitations Barrie Reyna M.D., [facility] 08/05/2019 Z79.01 middle or intermediate school principal (current) use of Boufal, Angely, DO anticoagulants 08/05/2019 I71.2 Thoracic aortic aneurysm, without Barrie Reyna M.D. 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 Galilea Benavidez, TUG BO[employer] ENGINEER clotting factors 07/19/2019 Z79.01 snf (current) use of Galilea Benavidez, [employer]UG [employer] ENGINEER anticoagulants 06/27/2019 Z79.01 middle or intermediate school principal (current) use of Boufal, Angely, DO anticoagulants 06/27/2019 Z79.01 snf (current) use of Oncology Nurse anticoagulants 06/27/2019 [...] extremity 04/11/2019 I71.2 Thoracic aortic aneurysm, without BoufalLuzAngely, DO rupture 04/11/2019 I71.2 Thoracic aortic aneurysm, without Oncology Nurse rupture 04/11/2019 Z79.01 snf (current) use of BoufalLuzAngely, DO anticoagulants 04/11/2019 Z79.01 middle or intermediate school principal (current) use of Oncology Nurse anticoagulants 04/06/2019 I71.2 Thoracic aortic aneurysm, without Talia Kelly MD rupture 04/06/2019 Z12.31 Encounter for screening mammogram for Talia Kelly MD malignant neoplasm of breast 03/18/2019 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 Boang, Angely, 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 03/18/2019 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 03/18/2019 I80.02 Phlebitis and thrombophlebitis of BoufalDevynt, DO superficial vessels of left lower extremity 03/18/2019 I80.02 Phlebitis and thrombophlebitis of Oncology Nurse superficial vessels of left lower extremity 03/04/2019 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, Angely, 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 03/04/2019 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 03/04/2019 I80.02 Phlebitis and thrombophlebitis of BoufalDevynt, DO superficial vessels of left lower extremity 03/04/2019 I80.02 Phlebitis and thrombophlebitis of Oncology Nurse superficial vessels of left lower extremity Plan of Treatment Future Appointment(s):02/20/2020 9:40 am - Barrie Reyna M.D., FACC at Cardiology [id number]/22/2019 2:30 pm - Galilea Benavidez NP at Oncology [id number]/05/2019 2:20 pm - Talia Kelly MD at Primary Care [id number] - Barrie Reyna M.D., FACCR00.2 PalpitationsComments:I reassured her.I71.2 Thoracic aortic aneurysm, without ruptureNew Xrays:CT, Chest W Out Contrast, Ordered: 08/05/19New Orders:Echocardiogram, Ordered: 08/05/19Comments: Borderline dilation of the ascending aorta. Will follow up with CT of the chest and echo in 6 wmramoD19.01 middle or intermediate school principal (current) use of anticoagulantsComments:On coumadin followed by PCPI71.2 Thoracic aortic aneurysm, without ruptureNew Xrays :CT, Chest W Out Contrast, Ordered: 08/05/19New Orders:Echocardiogram, Ordered: 08/05/19Comments:Borderline dilation of the ascending aorta. Will follow up with CT of the chest and echo in 6 wyoojrG64.2 PalpitationsComments:I reassured her.Z79.01 snf (current) use of anticoagulantsComments:On coumadin followed by PCPAllFollow up:Follow up visit in 6 months. Functional Status Functional Condition Comment Date Status Independent with all ADL's Active Glasses Active Mental Status Description No Information Available Referrals Description No Information Available
--- OUTSIDE RECORDS SUMMARY | 2019-09-06 13:36 | XMS REPORT | Continuity of Care Document ---
:1965 External Reference #:[id number] Author Name Galilea Benavidez, GROUNDS/MAINTENANCE SPECIALIST Address [address] [place] [address] Care Team Providers Name Role Phone Angely Self DO - Hematology & Care Team Information Hand Binder Cutter Oncology Sammy Gonzalez MD - Surgery Care Team Information Hand Binder Cutter Lakisha Herrera MD - Family Care Team Information Hand Binder Cutter [phone] Medicine Talia Kelly MD - Internal Care Team Information Hand Binder Cutter [phone] Medicine Problems Active Problems Provider Date Thrombophlebitis [...] Facility Test Result H/L Range Note Date nRBC # Bld Auto 07/14/2019 N2N/CCD Import Nucleated RBC 0.00 Absolute Count (auto) Prothrombin time 07/14/2019 N2N/CCD Import Prothrombin Time 32.9 High 12.0-14. 4 Inr PPP 07/14/2019 N2N/CCD Import Inr International 3.1 High 0.9-1.1 Normalized Ratio Glucose 07/14/2019 N2N/CCD Import Glucose Screen 102 74-106 SerPl-mCnc BUN SerPl-mCnc 07/14/2019 N2N/CCD Import Blood Urea Nitrogen 18 7-18 Creat SerPl-mCnc 07/14/2019 N2N/CCD Import Creatinine 1.3 0.6-1.3 GFR/Bsa pred.non 07/14/2019 N2N/CCD Import Estimated GFR 45 >60 black SerPl (Non- MDRD-ArVRat Swedish GFR/Bsa 07/14/2019 N2N/CCD Import Estimated GFR 54 [...] 40.4- 72. NFr Bld Auto (Auto) 8 Imm Granulocytes 07/14/2019 N2N/CCD Import Immature 0.02 [...] finding [address] D,25-Hydroxy ng/mL .0 [place] [address] [phone] Vitamin B12 And 06/27/2019 [facility] Vitamin B12 > 2000 High 193-[address] pg/[place] [address] [phone] Folic Acid > 20.0 ng/mL High 3.1-17.5 Laboratory test 06/27/2019 [facility] Ferritin 87 ng/mL Normal 8-252 finding [address] [place] [address] [phone] Iron-Tibc-%Sat 06/27/2019 [facility] Serum Iron 81 g/dL Normal 50-170 [address] [place] [address] [phone] Total Iron Binding Capacity 325 g/dL Normal 250-450 Transferrin %Saturation 25 % Normal 12-57 Comprehensive 06/27/2019 [facility] Glucose 89 mg/dL Normal 74-106 Metabolic Panel [address] [place] [address] [phone] BUN 17 mg/dL Normal 7-18 Creatinine 0.9 [...] 76 U/L Normal 45-117 CBC W/Automated 06/27/2019 [facility] White Blood 4.7 K/uL Normal 3.1-10.7 Diff [address] [place] [address] [phone] Red Blood Count 4.43 M/uL Normal 3.90-5.40 [...] 40.4-72.8 Lymph % 31.6 % Normal 20.0-42.0 [place] % 9.1 % Normal 4.3-13.2 Eo% 3.0 % Normal 0.0-6.6 Bas% 1.3 % High 0.0-1.1 Immature Grans 0.4 % Normal 0.0-5.0 NRBC % 0.0 /100WBC < 10/ 100 WBC Neut# 2.57 K/uL Normal 1.8-7.0 Lymph # 1.49 K/uL Normal 1.0-4.0 [place] # 0.43 K/uL Normal 0.3-0.9 Eos # 0.14 K/uL Normal 0.0-0.5 Baso # 0.06 K/uL Normal 0.0-0.1 Immature Grans Absolute 0.02 K/uL NRBC # 0.00 K/uL Protime 06/27/2019 [facility] Protime 30.4 seconds High 12.0-14.4 [address], [place] [id number] [phone] Inr 2.8 High 0.9-1.1 4 Protime 06/09/2019 [facility] Protime 28.7 seconds High 12.0-14.4 5 [address] [place] [address] [phone] Inr 2.6 High 0.9-1.1 6 Anticoagulant Therapy? Unknown Protime 06/03/2019 [facility] Protime 23.7 seconds High 12.0-14.4 7 [address] [place] [address] [phone] Inr 2.1 High 0.9-1.1 8 Anticoagulant Therapy? Unknown Protime 05/27/2019 [facility] Protime 35.3 seconds High 12.0-14.4 [address] [place] [address] [phone] Inr 3.4 High 0.9-1.1 9 Anticoagulant Therapy? Unknown Protime 05/13/2019 [facility] Protime 28.7 seconds High 12.0-14.4 [address] [place] [address] [phone] Inr 2.6 High 0.9-1.1 10 Anticoagulant Therapy? YES Date of Last Dose: U Time of Last Dose: U Protime 04/25/2019 [facility] Protime 31.9 seconds High 12.0-14.4 [address] [place] [address] [phone] Inr 3.0 High 0.9-1.1 11 Protime 04/11/2019 [facility] Protime 33.7 seconds High 12.0-14.4 12 [address] [place] [address] [phone] Inr 3.2 High 0.9-1.1 13 Liver Function 04/04/2019 [facility] Total Protein 7.2 g/dL Normal 6.4-8.2 14 Tests [address] [place] [address] [phone] Albumin 3.7 g/dL Normal 3.4-5.0 Globulin 3.5 [...] Protime 26.6 seconds High 12.0-14.4 16 [address] [place] [address] [phone] Inr 2.4 High 0.9-1.1 17 Anticoagulant Therapy? Unknown Protime 03/04/2019 [facility] Protime 32.1 seconds High 12.0-14.4 [address] [place] [address] [phone] Inr 3.0 High 0.9-1.1 18 Anticoagulant Therapy? YES Date of Last Dose: U Time of Last Dose: U Protime 02/22/2019 [facility] Protime 30.6 seconds High 12.0-14.4 19 [address] [place] [address] [phone] Inr 2.9 High 0.9-1.1 20 Anticoagulant Therapy? Unknown Protime 02/15/2019 [facility] Protime 40.6 seconds High 12.0-14.4 21 [address] [place] [address] [phone] Inr 4.1 High 0.9-1.1 22 Anticoagulant Therapy? YES Date of Last Dose: U Time of Last Dose: U Protime 02/08/2019 [facility] Protime 32.8 seconds High 12.0-14.4 [address] [place] [address] [phone] Inr 3.1 High 0.9-1.1 23 Anticoagulant Therapy? YES Date of Last Dose: U Time of Last Dose: U Protime 02/04/2019 [facility] Protime 45.9 seconds High 12.0-14.4 [address] [place] [address] [phone] Inr 4.8 High 0.9-1.1 24 Anticoagulant Therapy? YES Date of Last Dose: U Time of Last Dose: U Protime 02/01/2019 [facility] Protime 46.0 seconds High 12.0-14.4 25 [address] [place] [address] [phone] Inr 4.8 High 0.9-1.1 26 Anticoagulant Therapy? Unknown Protime 01/19/2019 [facility] Protime 33.7 seconds High 12.0-14.4 27 [address] [place] [address] [phone] Inr 3.2 High 0.9-1.1 28 Anticoagulant Therapy? YES Date of Last Dose: U Time of Last Dose: U 1 Z79.01 D68.2 2 Vitamin D deficiency has been defined by the [place] [employer] and an Endocrine Society practice guideline as a level of serum 25-OH vitamin D less than 20 ng/mL (1,2). The Endocrine Society went on to further define vitamin D insufficiency as a level between 21 and 29 ng/mL (2). 1. IOM ([place] [employer]). 2010. Dietary reference intakes for calcium and D. [place]: The National Academies Press. 2. Augusto MF, Kisha NC, Darby CARRIZALES, et al. Evaluation, treatment, and prevention of vitamin D deficiency: an Endocrine Society clinical practice guideline. JCEM. 2010; 96(2):1911-30. Performed at: RN - [facility] [address] [id number] Lung Splitter: Ember Capone MD, Phone: [phone] Note: Persistent reduction for 3 months [...] patients. 2.5 - 3.5 Mechanical heart valves 25 D68.2, I80.02 26 THERAPEUTIC INR RANGE: 2.0 - 3.0 DVT, Pulmonary embolus, prophylaxis against venous thrombosis or systemic embolization in high risk patients. 2.5 - 3.5 Mechanical heart valves 27 D68.2 I80.02 28 THERAPEUTIC INR RANGE: 2.0 - 3.0 DVT, Pulmonary embolus, prophylaxis against venous thrombosis or systemic embolization in high risk patients. 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 Office Visit 05/16/2019 8:10a Primary Care Leticia M79.602 Pain in left Office MD Talia arm Office Visit 04/06/2019 1:40p Primary Care Leticia I71.2 Thoracic Office MD Talia aortic aneurysm, without rupture Z12.31 Encntr screen mammogram for malignant neoplasm of breast Office Visit 01/28/2019 11:30a Primary Care Julia Shell R94.5 Abnormal results Office HDAVIDA Valdez of liver function studies Assessments Date Code Description Provider 07/19/2019 Z79.01 rat exterminator (current) use of Galilea Benavidez, GROUNDS/MAINTENANCE SPECIALIST anticoagulants 07/19/2019 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 Galilea Benavidez , GROUNDS/MAINTENANCE SPECIALIST factors 06/27/2019 Z79.01 assisted (current) use of BoufalLuzAngely, DO anticoagulants 06/27/2019 Z79.01 assisted (current) use of Oncology Nurse anticoagulants 06/27/2019 [...] aneurysm, without Oncology Nurse rupture 04/11/2019 Z79.01 assisted (current) use of BoufalDevynt, DO anticoagulants 04/11/2019 Z79.01 assisted (current) use of Oncology Nurse anticoagulants 04/06/2019 [...] 02/08/2019 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, Angely, DO factors 02/08/2019 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 Oncology Nurse factors 02/08/2019 I80.02 Phlebitis and thrombophlebitis of Devyn Selft, DO superficial vessels of left lower extremity 02/08/2019 I80.02 Phlebitis and thrombophlebitis of Oncology Nurse superficial vessels of left lower extremity 02/04/2019 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 Devyn Selft, DO factors 02/04/2019 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 Oncology Nurse factors 02/04/2019 I80.02 Phlebitis and thrombophlebitis of Devyn Selft, DO superficial vessels of left lower extremity 02/04/2019 I80.02 Phlebitis and thrombophlebitis of Oncology Nurse superficial vessels of left lower extremity 02/01/2019 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 Devyn Selft, DO factors 02/01/2019 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 Oncology Nurse factors 02/01/2019 I80.02 Phlebitis and thrombophlebitis of Devyn Selft, DO superficial vessels of left lower extremity 02/01/2019 I80.02 Phlebitis and thrombophlebitis of Oncology Nurse superficial vessels of left lower extremity 01/28/2019 R94.5 Abnormal results of liver function Julia Shell, PA studies 01/19/2019 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 Devyn Selft, DO factors 01/19/2019 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 Oncology Nurse factors 01/19/2019 I80.02 Phlebitis and thrombophlebitis of Angely Self, DO superficial vessels of left lower extremity 01/19/2019 I80.02 Phlebitis and thrombophlebitis of Oncology Nurse superficial vessels of left lower extremity Plan of Treatment Future Appointment(s):11/22/2019 2:30 pm - Galilea Benavidez NP at Oncology Fxoxwe3008/05/2019 8:15 am - Oncology Nurse at Oncology Qrofii8110/05/2019 2:20 pm - Talia Kelly MD at Primary Care Kznhek8507/19/2019 - Galilea Benavidez, NP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Comments:Pt continues to tolerate coumadin with no adverse effects.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Comments:Continue CoumadinFollow up:FU 4 months Functional Status Functional Condition Comment Date Status Independent with all ADL's Active Mental Status Description No Information Available Referrals Description No Information Available
== END 2019-09-06 13:50 | disposition home or self-care (01) ==
LOC: UCCORT 13:09
DX: R21 Rash and other nonspecific skin eruption (principal); T78.40XA Allergy, unspecified, initial encounter; X58.XXXA Exposure to other specified factors, initial encounter; Z79.01 Long term (current) use of anticoagulants; Z91.041 Radiographic dye allergy status
CPT/HCPCS: 99212; G0463